=== PATIENT | female | born 1940 | race Caucasian/White ===

== ENCOUNTER 2024-06-06 14:08 | Emergency (ER) | payer MEDICARE, BC, SELFPAY ==
--- NOTE | 2024-06-06 14:28 | XR_ITS ---
EXAMINATION: US venous doppler LE LT HISTORY: calf and thigh pain X3 days COMPARISON: 12/09/2022, left lower extremity DVT ultrasound. FINDINGS: Otto scale, color doppler, and spectral waveforms of the bilateral lower extremity veins. The imaged veins are unremarkable without evidence of internal thrombus. Spectral Doppler imaging demonstrates normal wave forms. In the posterior knee soft tissues, there is an anechoic 3.4 x 1.4 x 2.0 cm lesion with a small tail projecting the knee joint. There is no internal color Doppler. This does not compress. This is similar to previous examination. 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 IMPRESSION: Negative for deep venous thrombosis.
--- NOTE | 2024-06-06 14:28 | EKG_ITS ---
[facility] Test Date: 2024-06-06 Pat Name: SANTOS JACQUES Department: Room: - Gender: Female Rn Community Health: : 1940 Requested By: Kishor Roth Order Number: [id number] Reading MD: Kishor Roth Measurements Intervals [place] Rate: 70 P: 158 RI: 165 QRS: -73 QRSD: 173 T: 82 QT: 447 QTc: 485 Interpretive Statements ELECTRONIC ATRIAL PACEMAKER ELECTRONIC VENTRICULAR PACEMAKER ABNORMAL RHYTHM ECG Compared to ECG 08/30/2023 12:10:34 No significant changes /store/S0/[id number].pdf
--- NOTE | 2024-06-06 14:28 | PD.EDADULT ---
ED General RME/HPI General Chief complaint: Extremity Injury, Lower Stated complaint: LEFT LEG PAIN Time Seen by Provider: 06/06/24 14:27 Arrival date/time: 06/06/24 14:08 CC: Left leg pain HPI ongoing for the past 3 days patient is present with left calf pain left posterior knee pain and left medial thigh pain patient is been taking Tylenol otherwise only other medications are levothyroxine and lisinopril. Tessa is the the PCP Dayanna is the forestry and wildlife manager. Patient denies shortness of breath chest pain shortness difficulty breathing nausea vomiting or diarrhea. Related Data Home Medications ?Medication ?Instructions ?Recorded ?Confirmed lisinopril 20 mg tablet 20 mg PO QDAY #0 tabs 10/05/16 11/10/18 thyroid (pork) 90 mg tablet 90 mg PO QDAY #0 tabs 10/05/16 11/10/18 ([place] Thyroid) metformin 500 mg tablet 500 mg PO BID 11/15/17 11/10/18 loratadine-pseudoephedrine ER 10 1 tab PO QDAY 12/07/17 11/10/18 mg-240 mg tablet,extended nyhevmr75mo (Allergy Relief D-24hr) fkxyfnwaummz-Vf-fmew-minerals 1 tab PO DAILY 12/07/17 11/10/18 (Multiple Vitamin, Womens tablet) antiox.multivit 10-dlzri8w 280 1 cap PO QDAY 11/04/18 11/10/18 mg-lutein 10 mg-zeaxanthin 2 mg capsule (I-Caps) calcium polycarbophil 625 mg 625 mg PO BID 11/04/18 11/10/18 tablet (Fiber-Tabs) coenzyme Q10 200 mg capsule 200 mg PO QDAY 11/04/18 11/10/18 omega 3 350 mg-dha 235 mg-epa 90 2 cap PO QDAY 11/04/18 11/10/18 mg-fish oil 597 mg capsule,delay rel (Sargent-3) Previous Rx's ?Medication ?Instructions ?Recorded docusate sodium 100 mg capsule 100 mg PO BID #60 caps 12/17/17 (Colace) hydrocodone 10 mg-acetaminophen 1 tab PO Q6H PRN Pain #50 tabs 11/09/18 325 mg tablet rivaroxaban 10 mg tablet (Xarelto) 10 mg PO Q24H #28 tabs 11/09/18 Allergies Allergy/AdvReac Type Severity Reaction Status Date / Time codeine Allergy Severe SHORTNESS Verified 11/07/18 12:44 OF BREATH morphine AdvReac Intermediate SHORT OF Verified 11/07/18 12:44 BREATH Past Medical History Past Medical History NEUROLOGIC: Positive Neurological Disorders and Peripheral Neuropathy; Negative Seizures CARDIAC: Positive Cardiac Disorders, Congestive Heart Failure and Hypertension RESPIRATORY: Negative Chronic Obstructive Pulmonary Disease (COPD), Asthma or Bronchitis GASTROINTESTINAL: Positive Gastrointestinal Disorders, Diverticulitis and Obesity GENITOURINARY: Negative Genitourinary Disorders or Renal Disease REPRODUCTIVE: Positive Endometriosis and Previous Pregnancies; Negative Pelvic Inflammatory Disease MUSCULOSKELETAL: Positive Musculoskeletal Disorders, Arthritis and Scoliosis; Negative Osteoporosis, Gout or Fibromyalgia ENT: Positive Cataracts ENDOCRINE: Positive Endocrine Disorders, Diabetes Mellitus Type 2 and Hypothyroidism; Negative Diabetes Mellitus Type 1 HEMATOLOGIC: Negative Blood Disorders or Sickle Cell Disease PSYCHO/SOCIAL: Positive Depression OTHER HISTORY: Positive Hospitalization, Autoimmune Disease, Chicken Pox and Mumps; Negative Falls, Blood Transfusions, Blood Transfusion Reaction or Anesthesia Reactions Family History FAMILY HISTORY: Positive Family Respiratory Disorders, Family Cardiac Disorders, Family Cancer and Family Surgery; Negative Family Psychiatric Problems, Family Gastrointestinal Problems or Family Anesthesia Reaction Surgical History SURGICAL: Positive Cardiac Surgery, Pacemaker, Angiogram, Endocrine Surgery, Thyroidectomy, Tonsillectomy and Hysterectomy; Negative Open Heart Surgery, Coronary Artery Bypass Graft, Valve Replacement, Coronary Stent or Cardiac Catheterization Social History SMOKING STATUS: Never smoker SECOND HAND EXPOSURE: No ED Exam Narrative Physical exam: [General: Morbid obese not in any acute distress Head normocephalic HEENT: Within acceptable limits Neck is supple nontender Chest equal chest rise nontender to palpation Respiratory: Clear to auscultation no wheezes crackles or rubs CV: Rate rhythm is regular no murmurs rubs or clicks Abdomen is distended secondary to body habitus soft nontender no masses positive bowel sounds all 4 quadrants Back: No CVA tenderness no spinous process tenderness from cervical spine thoracic and lumbar spine Skin: Intact no petechiae rash induration ulceration or crepitus Extremities: Moving all extremity against resistance cap refill less than 2 seconds neurosensory intact Neuro: Awake alert oriented x3 Glascow coma 15 no focal deficits] Course Quality Measures none Orders Category Date Time Status EKG (ED ONLY) *Do not use* NOW Care 06/06/24 14:28 Completed EKG (ED Only) Stat Exams 06/06/24 14:28 Draft US venous doppler LE LT Stat Exams 06/06/24 14:28 Completed B-Type Natriuretic Peptide Stat Lab 06/06/24 15:00 Completed CBC Stat Lab 06/06/24 15:00 Completed Comprehensive Metabolic Panel Stat Lab 06/06/24 15:00 Completed Drug Screen,Urine Stat Lab 06/06/24 14:28 Ordered LDH (Lactate Dehydrogenase) Stat Lab 06/06/24 15:00 Completed Magnesium Stat Lab 06/06/24 15:00 Completed Partial Thromboplastin Time Stat Lab 06/06/24 15:00 Completed Prothrombin Time with INR Stat Lab 06/06/24 15:00 Completed Troponin I Stat Lab 06/06/24 15:00 Completed Urinalysis Stat Lab 06/06/24 14:28 Ordered Vital Signs Vital signs: Vital Signs Temperature 98.1 F 06/06/24 14:51 Pulse Rate 69 06/06/24 14:51 Respiratory Rate 18 06/06/24 14:51 Blood Pressure 164/94 H 06/06/24 14:51 Pulse Oximetry (%) 98 06/06/24 14:51 Oxygen Delivery Method Room Air 06/06/24 14:51 [facility] Patient data External records reviewed:: [facility] previous records and EMS form Clinical information provided by:: patient and EMS Social determinants that could affect healthcare access:: none Patient has the following chronic illnesses:: Hypertension hypothyroidism How is presenting disease/condition affected by chronic disease/condition?: uneffected by Evaluation data The following diagnostics were reviewed and interpreted by me:: lab results, radiology exam(s) and EKG tracing(s) Lab and/or radiology exams considered but not ordered:: CBC shows no acute leukocytosis anemia thrombocytopenia CMP shows no acute electrolyte imbalances renal impairment transaminitis or T. bili elevation Coags within acceptable limits Troponin is negative BNP is negative Ultrasound is negative for DVT Interpretation Summary: Left lower leg pain is not derived from a DVT. This time not knowing where that pain is coming from have the patient is able to ambulate patient will be discharged home with left lower leg pain Medications Medications considered but not ordered:: None Medication administrations:: None Consultations Consultation(s) initiated? (list below): No Diagnosis Differential Diagnosis ED Complaint MDM: DVT superficial thrombophlebitis, leg strain Most likely diagnosis given after review of the tests above:: Leg left leg pain Admission Indicated Admission indicated?: not indicated Explain why admission is indicated or not indicated:: Stable for outpatient follow-up Admission Request Was there a request for admission?: No Disposition Plan Disposition Plan: Discharge Discharge Attestation Discharge Attestation: The patient and all family members were given an opportunity to ask questions and understood the discharge instructions. Discharge instructions specifically effects, indications for sooner follow up or return to the emergency department, and the expected course of current diagnosis. Patient condition: Stable Medical Decision Making Differential Diagnosis Differential Diagnosis: DVT superficial thrombophlebitis, leg strain Lab Data 06/06/24 15:00 06/06/24 15:00 Labs: Lab Results 06/06/24 Range/Units 15:00 WBC 6.9 (3.6-11.0) Thou/mm3 RBC 4.52 (4.00-5.20) Miln/mm3 Hgb 13.4 (12.0-16.0) g/dL Hct 39.4 (36.0-46.0) % MCV 87 (80-100) fL MCH 29.6 (25.0-35.0) pg MCHC 34.0 (31.0-37.0) g/dl RDW Std Deviation 43.7 (36.4-46.3) fL Plt Count 215 (140-440) Thou/mm3 Neut % (Auto) 61 (37-80) % Lymph % (Auto) 31 (10-50) % Calvert % (Auto) 7 (0-12) % Eos % (Auto) 1 (0-10) % Baso % (Auto) 0 (0-2.5) % Neut # (Auto) 4.2 (1.8-7.7) Thou/mm3 Lymph # (Auto) 2.1 (1.0-4.8) Thou/mm3 Calvert # (Auto) 0.5 (0.0-0.8) Thou/mm3 Eos # (Auto) 0.0 (0.0-0.5) Thou/mm3 Baso # (Auto) 0.0 (0.0-0.2) Thou/mm3 Immature Gran # (Auto) 0.02 H (0.00-0.00) Thou/mm3 Absolute Nucleated RBC 0.00 (0.00-0.00) Thou/mm3 Immature Gran % 0 (0-0) % Nucleated RBC % 0 (0) /100 WBC PT 11.1 (9.0-12.2) Seconds INR 1.0 (0.9-1.3) APTT 51.8 H (22.0-36.0) Seconds Sodium 140 (136-145) mMol/L Potassium 4.0 (3.4-5.1) mMol/L Chloride 107 (98-107) mMol/L Carbon Dioxide 26.2 (20.0-31.0) mMol/L Anion Gap 7 (7-16) BUN 9 (9-23) mg/dL Creatinine 0.9 (0.6-1.3) mg/dL Estim Creat Clear Calc 51.5 L (>60) mL/min eGFR > 60 (60 - ) See Note BUN/Creatinine Ratio 10 L (12-20) Ratio Glucose 115 H (74-106) mg/dL Calculated Osmolality 279 (275-295) Calcium 9.6 (8.3-10.6) mg/dL Corrected Calcium 9.6 (8.5-10.1) mg/dL Magnesium 1.8 (1.6-2.6) mg/dL Total Bilirubin 0.3 (0.3-1.2) mg/dL AST 20 (0-34) U/L ALT 11 (10-49) U/L Alkaline Phosphatase 64 (46-116) U/L Lactate Dehydrogenase 157 (120-246) U/L Troponin I < 0.002 (0.0-0.045) ng/mL B-Natriuretic Peptide 79 (0-100) pg/mL Total Protein 6.9 (5.7-8.2) gm/dL Albumin 4.2 (3.4-4.8) gm/dL Globulin 2.7 (2.3-3.5) gm/dL Albumin/Globulin Ratio 1.6 (1.2-2.2) Discharge Plan Plan Patient Disposition: HOME (Self Care) Patient condition on transfer: Stable Prescriptions/Referrals Prescriptions/Med Rec: No Action metformin 500 mg tablet 500 mg PO BID lisinopril 20 MG tablet 20 mg PO QDAY Qty: 0 thyroid (pork) [[place] Thyroid] 90 MG tablet 90 mg PO QDAY Qty: 0 loratadine-pseudoephedrine [Allergy Relief D-24hr] 10-240 mg Tablet Extended Release 24 Hr 1 tab PO QDAY Multiple Vitamin, Womens Tablet 1 tab PO DAILY docusate sodium [Colace] 100 mg capsule 100 mg PO BID Qty: 60 0RF calcium polycarbophil [Fiber-Tabs] 625 mg Tablet 625 mg PO BID coenzyme Q10 200 mg Capsule 200 mg PO QDAY I-Caps 280-10-2 mg Capsule 1 cap PO QDAY Sargent-3 350 mg-235 mg- 90 mg-597 mg Capsule,Delayed Release(Dr/Ec) 2 cap PO QDAY hydrocodone-acetaminophen 10-325 mg Tablet 1 tab PO Q6H MDD 6 PRN (Reason: Pain) Qty: 50 0RF Xarelto 10 mg Tablet 10 mg PO Q24H Qty: 28 0RF Referrals: Samantha Zarate MD [Primary Care Provider] - In 1 week Problem List Clinical Impression: Left leg pain Patient/Caregiver Discharge Instructions Education Materials: ED Myalgias Additional Instructions: Follow-up with your primary care provider there is no DVT. If is worsening of symptoms return the emergency room medially for further evaluation. Print Language: Portuguese Stand Alone Forms: Andreea Award Info., Patient Portal Info Letter PA/OCCUPATIONAL HEALTH AND SAFETY ADVISER Supervising Physician PA/OCCUPATIONAL HEALTH AND SAFETY ADVISER Supervising Physician: Kishor Haynes ENP
[2024-06-06 14:38] VITALS: PULSE 90; RESP 20; O2SAT 97; BMI 39.1
[2024-06-06 14:51] VITALS: BP 164/94; PULSE 69; RESP 18; TEMP 36.7; O2SAT 98
[2024-06-06 15:14] LABS: Basophils % (Auto) 0 % (0-2.5); Eosinophils % (Auto) 1 % (0-10); Hematocrit 39.4 % (36.0-46.0); Hemoglobin 13.4 g/dL (12.0-16.0); Immature Granulocytes % (Auto) 0 % (0-0); Immature Granulocytes Auto 0.02 Thou/mm3 (0.00-0.00); Lymphocytes # (Auto) 2.1 Thou/mm3 (1.0-4.8); Lymphocytes % (Auto) 31 % (10-50); Mean Corpuscular Hemoglobin 29.6 pg (25.0-35.0); Mean Corpuscular Volume 87 fL (80-100); Monocytes # (Auto) 0.5 Thou/mm3 (0.0-0.8); Monocytes % (Auto) 7 % (0-12); Neutrophils # (Auto) 4.2 Thou/mm3 (1.8-7.7); Neutrophils % (Auto) 61 % (37-80); Nucleated Red Blood Cell % 0 /100 WBC (0); Platelet Count 215 Thou/mm3 (140-440); RDW Standard Deviation 43.7 fL (36.4-46.3); Red Blood Count 4.52 Miln/mm3 (4.00-5.20); White Blood Count 6.9 Thou/mm3 (3.6-11.0)
[2024-06-06 15:38] LABS: B-Type Natriuretic Peptide 79 pg/mL (0-100)
[2024-06-06 15:39] LABS: Alanine Aminotransferase 11 U/L (10-49); Albumin, Serum 4.2 gm/dL (3.4-4.8); Albumin/Globulin Ratio 1.6 (1.2-2.2); Alkaline Phosphatase 64 U/L (46-116); Anion Gap 7 (7-16); Aspartate Amino Transferase 20 U/L (0-34); BUN/Creatinine Ratio 10 Ratio (12-20); Bilirubin,Total 0.3 mg/dL (0.3-1.2); Blood Urea Nitrogen 9 mg/dL (9-23); Calcium 9.6 mg/dL (8.3-10.6); Calcium (Corrected) 9.6 mg/dL (8.5-10.1); Carbon Dioxide 26.2 mMol/L (20.0-31.0); Chloride 107 mMol/L (98-107); Creatinine (Component) 0.9 mg/dL (0.6-1.3); Estimated Creatinine Clearance 51.5 mL/min (>60); Globulin 2.7 gm/dL (2.3-3.5); Glucose 115 mg/dL (74-106); LDH (Lactate Dehydrogenase) 157 U/L (120-246); Magnesium 1.8 mg/dL (1.6-2.6); Osmolality,Calculated 279 (275-295); Sodium 140 mMol/L (136-145); Total Protein 6.9 gm/dL (5.7-8.2); Troponin I < 0.002 ng/mL (0.0-0.045); eGFR > 60 See Note
[2024-06-06 15:53] LABS: Partial Thromboplastin Time 51.8 Seconds (22.0-36.0); Prothrombin Time 11.1 Seconds (9.0-12.2)
[2024-06-06 16:47] VITALS: BP 98/79; PULSE 72; RESP 20; TEMP 36.3; O2SAT 100
[2024-06-06 17:57] VITALS: BP 176/90; PULSE 97; RESP 20; TEMP 36.6; O2SAT 95
== END 2024-06-06 17:58 | disposition home or self-care (01) ==
PROVIDERS: Registered Nurse General Practice; Emergency Provider Emergency Medicine; PCP Family Medicine
DX: M25.562 Pain in left knee (principal); M79.652 Pain in left thigh; M79.662 Pain in left lower leg
CPT/HCPCS: 36415; 80053; 80307; 81001; 83615; 83735; 83880; 84484; 85025; 85610; 85730; 93005; 93971; 99284

== ENCOUNTER → 2024-06-19 | Outpatient (CLI) | payer MEDICARE, BC, SELFPAY ==
[2024-06-19 13:50] LABS: Basophils % (Auto) 0 % (0-2.5); Eosinophils # (Auto) 0.1 Thou/mm3 (0.0-0.5); Eosinophils % (Auto) 1 % (0-10); Hematocrit 39.7 % (36.0-46.0); Immature Granulocytes % (Auto) 0 % (0-0); Immature Granulocytes Auto 0.03 Thou/mm3 (0.00-0.00); Lymphocytes # (Auto) 2.4 Thou/mm3 (1.0-4.8); Lymphocytes % (Auto) 29 % (10-50); Mean Corpuscular HGB Conc 32.7 g/dl (31.0-37.0); Mean Corpuscular Hemoglobin 29.4 pg (25.0-35.0); Mean Corpuscular Volume 90 fL (80-100); Monocytes # (Auto) 0.5 Thou/mm3 (0.0-0.8); Monocytes % (Auto) 7 % (0-12); Neutrophils # (Auto) 5.1 Thou/mm3 (1.8-7.7); Neutrophils % (Auto) 63 % (37-80); Nucleated Red Blood Cell % 0 /100 WBC (0); Platelet Count 245 Thou/mm3 (140-440); RDW Standard Deviation 45.1 fL (36.4-46.3); Red Blood Count 4.42 Miln/mm3 (4.00-5.20); White Blood Count 8.2 Thou/mm3 (3.6-11.0)
[2024-06-19 14:06] LABS: Anion Gap 8 (7-16); BUN/Creatinine Ratio 16 Ratio (12-20); Blood Urea Nitrogen 14 mg/dL (9-23); Calcium 10.4 mg/dL (8.3-10.6); Carbon Dioxide 30.2 mMol/L (20.0-31.0); Chloride 103 mMol/L (98-107); Creatinine (Component) 0.9 mg/dL (0.6-1.3); Glucose 110 mg/dL (74-106); Osmolality,Calculated 282 (275-295); Potassium 4.5 mMol/L (3.4-5.1); Sodium 141 mMol/L (136-145); eGFR > 60 See Note
[2024-06-19 14:08] LABS: Partial Thromboplastin Time 51.6 Seconds (22.0-36.0); Prothrombin Time 10.9 Seconds (9.0-12.2)
== END | disposition home or self-care (01) ==
LOC: COPL 11:39
PROVIDERS: PCP Registered Nurse; Referring Provider Internal Medicine; Visit Provider Internal Medicine
DX: I25.10 Atherosclerotic heart disease of native coronary artery without angina pectoris (principal); I48.91 Unspecified atrial fibrillation
CPT/HCPCS: 36415; 80048; 85025; 85610; 85730

== ENCOUNTER 2024-08-18 12:50 | Emergency (ER) | payer MEDICARE, BC, SELFPAY ==
[2024-08-18 12:52] VITALS: BP 163/89; PULSE 71; RESP 20; TEMP 36.7; O2SAT 98
[2024-08-18 12:59] VITALS: PULSE 90; O2SAT 97
[2024-08-18 13:03] VITALS: BMI 37.3
--- NOTE | 2024-08-18 13:27 | EKG_ITS ---
[facility] Test Date: 2024-08-18 Pat Name: SANTOS JACQUES Department: Room: - Gender: Female Creative Manager: : 1940 Requested By: Jhon Reza Order Number: [id number] Reading MD: Jhon Reza Measurements Intervals [place] Rate: 70 P: 146 VA: 171 QRS: -66 QRSD: 168 T: 70 QT: 435 QTc: 469 Interpretive Statements ELECTRONIC ATRIAL PACEMAKER ELECTRONIC VENTRICULAR PACEMAKER ABNORMAL RHYTHM ECG Compared to ECG 06/06/2024 15:44:57 No significant changes /store/S0/[id number]/[id number].pdf
--- NOTE | 2024-08-18 13:27 | XR_ITS ---
Examination: AP chest single view Technique one AP portable upright chest single view Date and time: August 18, 2024 1339 hours Comparison 12/26/2017 INDICATIONS: Shortness of breath today. FINDINGS: Normal heart size No pneumonia or pulmonary edema Cardiac leads satisfactory position IMPRESSION: No active disease
[2024-08-18 13:58] VITALS: PULSE 75
[2024-08-18 14:07] LABS: Basophils % (Auto) 1 % (0-2.5); Eosinophils % (Auto) 1 % (0-10); Hematocrit 38.5 % (36.0-46.0); Immature Granulocytes % (Auto) 0 % (0-0); Immature Granulocytes Auto 0.02 Thou/mm3 (0.00-0.00); Lymphocytes # (Auto) 1.9 Thou/mm3 (1.0-4.8); Lymphocytes % (Auto) 29 % (10-50); Mean Corpuscular HGB Conc 33.8 g/dl (31.0-37.0); Mean Corpuscular Volume 89 fL (80-100); Monocytes # (Auto) 0.4 Thou/mm3 (0.0-0.8); Monocytes % (Auto) 7 % (0-12); Neutrophils % (Auto) 62 % (37-80); Nucleated Red Blood Cell % 0 /100 WBC (0); Platelet Count 213 Thou/mm3 (140-440); Red Blood Count 4.33 Miln/mm3 (4.00-5.20); White Blood Count 6.3 Thou/mm3 (3.6-11.0)
[2024-08-18 14:17] LABS: B-Type Natriuretic Peptide 84 pg/mL (0-100)
[2024-08-18 14:18] LABS: Alanine Aminotransferase 12 U/L (10-49); Albumin, Serum 4.1 gm/dL (3.4-4.8); Albumin/Globulin Ratio 1.6 (1.2-2.2); Alkaline Phosphatase 63 U/L (46-116); Anion Gap 9 (7-16); Aspartate Amino Transferase 21 U/L (0-34); BUN/Creatinine Ratio 12 Ratio (12-20); Bilirubin,Total 0.4 mg/dL (0.3-1.2); Blood Urea Nitrogen 11 mg/dL (9-23); Calcium 8.9 mg/dL (8.3-10.6); Calcium (Corrected) 8.9 mg/dL (8.5-10.1); Carbon Dioxide 27.4 mMol/L (20.0-31.0); Chloride 106 mMol/L (98-107); Creatinine (Component) 0.9 mg/dL (0.6-1.3); Estimated Creatinine Clearance 50.1 mL/min (>60); Globulin 2.5 gm/dL (2.3-3.5); Glucose 114 mg/dL (74-106); Osmolality,Calculated 283 (275-295); Potassium 4.2 mMol/L (3.4-5.1); Sodium 142 mMol/L (136-145); Total Protein 6.6 gm/dL (5.7-8.2); Troponin I < 0.020 ng/mL (0.0-0.045); eGFR > 60 See Note
--- NOTE | 2024-08-18 14:24 | PD.EDSOB ---
ED SOB =RME/HPI General Chief Complaint: Shortness of Breath/Dyspnea Stated Complaint: SOB Time Seen by Provider: 08/18/24 13:00 Arrival date/time: 08/18/24 12:50 Limitations: no limitations RME / HPI RME / HPI Narrative: 84 year old female with history of hypertension, hypothyroidism presents to the ED BIBA from home for evaluation of shortness of breath today. While in the ED, patient described feeling her body is heavy and unable to get a deep breath in. Patient mentioned she often feels short of breath that resolves on its own. Denies fevers, chills, sweats, chest pain, cough, abdominal pain, n/v/d, or urinary symptoms. No other associated symptoms or complaints reported. Related Data Home Medications ?Medication ?Instructions ?Recorded ?Confirmed lisinopril 20 mg tablet 20 mg PO QDAY #0 tabs 10/05/16 11/10/18 thyroid (pork) 90 mg tablet 90 mg PO QDAY #0 tabs 10/05/16 11/10/18 ([place] Thyroid) metformin 500 mg tablet 500 mg PO BID 11/15/17 11/10/18 loratadine-pseudoephedrine ER 10 1 tab PO QDAY 12/07/17 11/10/18 mg-240 mg tablet,extended nijwchl45mm (Allergy Relief D-24hr) enjvjumezvxc-Fx-pusp-minerals 1 tab PO DAILY 12/07/17 11/10/18 (Multiple Vitamin, Womens tablet) antiox.multivit 10-agwwu3n 280 1 cap PO QDAY 11/04/18 11/10/18 mg-lutein 10 mg-zeaxanthin 2 mg capsule (I-Caps) calcium polycarbophil 625 mg 625 mg PO BID 11/04/18 11/10/18 tablet (Fiber-Tabs) coenzyme Q10 200 mg capsule 200 mg PO QDAY 11/04/18 11/10/18 omega 3 350 mg-dha 235 mg-epa 90 2 cap PO QDAY 11/04/18 11/10/18 mg-fish oil 597 mg capsule,delay rel (Ellinger-3) Previous Rx's ?Medication ?Instructions ?Recorded docusate sodium 100 mg capsule 100 mg PO BID #60 caps 12/17/17 (Colace) hydrocodone 10 mg-acetaminophen 1 tab PO Q6H PRN Pain #50 tabs 11/09/18 325 mg tablet rivaroxaban 10 mg tablet (Xarelto) 10 mg PO Q24H #28 tabs 11/09/18 Allergies Allergy/AdvReac Type Severity Reaction Status Date / Time codeine Allergy Severe SHORTNESS Verified 11/07/18 12:44 OF BREATH morphine AdvReac Intermediate SHORT OF Verified 11/07/18 12:44 BREATH Review of Systems Review of Systems Narrative Review of Systems: GEN: No fever, no chills, no weight loss EYES: No discharge, no visual changes, no pain HEENT: No ear pain, no congestion, no sore throat PULM: +shortness of breath, no cough, no congestion CV: No chest pain, no dyspnea on exertion, no palpitations GI: No nausea, no vomiting, no diarrhea, no pain, no constipation : No frequency, no urgency and no dysuria MUSC/SKEL No joint pain, no back pain SKIN: No rash PSYCH: No hallucinations, no depression HEME/LYMPH: No easy bleeding or bruising tendencies NEURO: No weakness, no headache Past Medical History Past Medical History NEUROLOGIC: Positive Neurological Disorders and Peripheral Neuropathy CARDIAC: Positive Cardiac Disorders, Heart Murmur, Congestive Heart Failure and Hypertension GASTROINTESTINAL: Positive Gastrointestinal Disorders, Diverticulitis and Obesity REPRODUCTIVE: Positive Endometriosis and Previous Pregnancies MUSCULOSKELETAL: Positive Musculoskeletal Disorders, Arthritis and Scoliosis ENT: Positive Cataracts ENDOCRINE: Positive Endocrine Disorders and Hypothyroidism PSYCHO/SOCIAL: Positive Depression OTHER HISTORY: Positive Hospitalization, Chicken Pox and Mumps Family History FAMILY HISTORY: Positive Family Respiratory Disorders, Family Cardiac Disorders, Family Cancer and Family Surgery Surgical History SURGICAL: Positive Cardiac Surgery, Pacemaker, Angiogram, Endocrine Surgery, Thyroidectomy, Tonsillectomy and Hysterectomy Social History SMOKING STATUS: Never smoker SECOND HAND EXPOSURE: No ED Exam General Limitations: Present no limitations General appearance: Present alert and other (Tearful ) Head Head exam: Present atraumatic Eye Eye exam: Present normal appearance, PERRL and EOMI ENT ENT exam: Present normal exam, normal oropharynx and mucous membranes moist Neck Neck exam: Present normal inspection, full ROM and trachea midline Chest Chest inspection: Present normal inspection and symmetric chest wall rise Respiratory Respiratory exam: Present normal lung sounds bilaterally Cardiovascular Cardiovascular exam: Present regular rate, normal rhythm and normal heart sounds Abdominal Exam Abdominal exam: Present soft and normal bowel sounds Extremities Exam Extremities exam: Present normal inspection and full ROM Back Exam Back exam: Present normal inspection and full ROM Neurological Exam Neurological exam: Present alert, oriented X3 and CN II-XII intact Psychiatric Psychiatric exam: Present normal affect and normal mood Skin Skin exam: Present warm, dry, intact and normal color Course Quality Measures none Orders Category Date Time Status Settlement Clerk NOW Care 08/18/24 13:28 Active Continuous Pulse Oximetry NOW Care 08/18/24 13:27 Completed EKG (ED ONLY) *Do not use* NOW Care 08/18/24 13:28 Completed Insert IV NOW Care 08/18/24 13:28 Active EKG (ED Only) Stat Exams 08/18/24 13:27 Draft XR chest 1V portable Stat Exams 08/18/24 13:27 Completed B-Type Natriuretic Peptide Stat Lab 08/18/24 13:48 Completed CBC Stat Lab 08/18/24 13:48 Completed Comprehensive Metabolic Panel Stat Lab 08/18/24 13:48 Completed Partial Thromboplastin Time Stat Lab 08/18/24 13:48 Completed Troponin I Stat Lab 08/18/24 13:48 Completed Urinalysis Stat Lab 08/18/24 14:06 Completed Vital Signs Vital signs: Vital Signs Temperature 98.1 F 08/18/24 12:52 Pulse Rate 71 08/18/24 12:52 Respiratory Rate 20 08/18/24 12:52 Blood Pressure 163/89 H 08/18/24 12:52 Pulse Oximetry (%) 98 08/18/24 12:52 Oxygen Delivery Method Room Air 08/18/24 12:52 Pulse ox is 98% on room air which is adequate. Shortness of Breath / Dyspnea MDM Narrative MDM Narrative:: Jane Dueñas am scribing for and in the presence of Dr. Jones. Patient remains clinically stable throughout the emergency department visit not in respiratory distress. We reviewed all the results, analysis, and treatment plans. Patient is amenable to discharge. Strict return precautions were outlined. Patient was discharged in stable condition. Patient data External records reviewed:: [facility] previous records (I reviewed ED Visit on 06/06/2024 ) and EMS form Clinical information provided by:: patient and EMS Social determinants that could affect healthcare access:: none Patient has the following chronic illnesses:: HTN, hypothyroidism How is presenting disease/condition affected by chronic disease/condition?: uneffected by Evaluation data The following diagnostics were reviewed and interpreted by me:: lab results, radiology exam(s) and EKG tracing(s) (EKG @ 14:02. Paced rhythm, rate 70, DC 171ms, QRS 168ms, QT/QTc 435/469ms. ) Lab and/or radiology exams considered but not ordered:: None Interpretation Summary: Ordering Physician: Jhon Jones MD Date of Service: 08/18/24 Procedure(s): XR chest 1V portable Accession Number(s): [id number] cc: Jhon Jones MD; Javad Pak MD~ Examination: AP chest single view Technique one AP portable upright chest single view Date and time: August 18, 2024 1339 hours Comparison 12/26/2017 INDICATIONS: Shortness of breath today. FINDINGS: Normal heart size No pneumonia or pulmonary edema Cardiac leads satisfactory position IMPRESSION: No active disease Dictated By: Javad Pak MD Signed By: <Electronically signed by Javad Pak MD in OV> 08/18/24 1349 Medications / Prescriptions Medications or Prescriptions considered but not ordered:: None Medication administrations:: See above Consultations Consultation(s) initiated? (list below): No Diagnosis Shortness of Breath Differential Diagnosis: acute exacerbation of chronic obstructive airways disease, congestive heart failure, community acquired pneumonia and asthma with exacerbation Most likely diagnosis given after review of the tests above:: Acute dyspnea Anxiety Admission Indicated Admission indicated?: not indicated Admission Request Was there a request for admission?: No Disposition Plan Disposition Plan: Discharge Discharge Attestation Discharge Attestation: The patient and all family members were given an opportunity to ask questions and understood the discharge instructions. Discharge instructions specifically effects, indications for sooner follow up or return to the emergency department, and the expected course of current diagnosis. Patient condition: Stable Discharge Plan Plan Patient Disposition: HOME (Self Care) Prescriptions/Referrals Prescriptions/Med Rec: No Action metformin 500 mg tablet 500 mg PO BID lisinopril 20 MG tablet 20 mg PO QDAY Qty: 0 thyroid (pork) [[place] Thyroid] 90 MG tablet 90 mg PO QDAY Qty: 0 loratadine-pseudoephedrine [Allergy Relief D-24hr] 10-240 mg Tablet Extended Release 24 Hr 1 tab PO QDAY Multiple Vitamin, Womens Tablet 1 tab PO DAILY docusate sodium [Colace] 100 mg capsule 100 mg PO BID Qty: 60 0RF calcium polycarbophil [Fiber-Tabs] 625 mg Tablet 625 mg PO BID coenzyme Q10 200 mg Capsule 200 mg PO QDAY I-Caps 280-10-2 mg Capsule 1 cap PO QDAY Ellinger-3 350 mg-235 mg- 90 mg-597 mg Capsule,Delayed Release(Dr/Ec) 2 cap PO QDAY hydrocodone-acetaminophen 10-325 mg Tablet 1 tab PO Q6H MDD 6 PRN (Reason: Pain) Qty: 50 0RF Xarelto 10 mg Tablet 10 mg PO Q24H Qty: 28 0RF Referrals: Francois Zarate MD [Primary Care Provider] - In 1 week Problem List Clinical Impression: Acute dyspnea, Anxiety Patient/Caregiver Discharge Instructions Education Materials: ED Anxiety Reaction, ED Shortness of Breath (Dyspnea) Additional Instructions: Follow-up with your primary care doctor in 3 to 5 days for recheck. You can return to the emergency department sooner if symptoms worsen or if you notice any new, concerning issues. Print Language: Yoruba Stand Alone Forms: Andreea Award Info., Patient Portal Info Letter
[2024-08-18 14:28] LABS: Partial Thromboplastin Time 51.3 Seconds (22.0-36.0)
[2024-08-18 14:42] LABS: Collection Type, Urine Clean Catch; Squamous Epithelial Cell,Urine 0 /hpf (0-5); WBC,Urine 0 /hpf (0-5)
[2024-08-18 14:56] LABS: Bilirubin,Urine Negative (Negative); Blood,Urine Negative (Negative); Clarity,Urine Clear (Clear/Hazy); Color,Urine Colorless (Lt Yel-Yel); Glucose, Urine Negative (Negative); Ketones,Urine Negative (Negative); Leukocyte Esterase,Urine Negative (Negative); Nitrite,Urine Negative (Negative); PH,Urine 7.5 (5.0-7.0); Protein,Urine Negative (Neg - Trace); RBC,Urine < 1 /hpf (0-3); Specific Gravity,Urine 1.006 (1.001-1.035); Urobilinogen,Urine Negative mg/dL (0.0-1.0)
[2024-08-18 16:16] VITALS: BP 169/94; PULSE 75; RESP 24; TEMP 36.8; O2SAT 97
== END 2024-08-18 16:29 | disposition home or self-care (01) ==
PROVIDERS: Emergency Provider Family Medicine; PCP Family Medicine
DX: F41.9 Anxiety disorder, unspecified (principal); R06.00 Dyspnea, unspecified; R94.31 Abnormal electrocardiogram [ECG] [EKG]; I11.0 Hypertensive heart disease with heart failure; I50.9 Heart failure, unspecified; Z95.0 Presence of cardiac pacemaker
CPT/HCPCS: 36415; 71045; 80053; 81001; 83880; 84484; 85025; 85730; 93005; 99283

== ENCOUNTER → 2024-09-26 | Outpatient (CLI) | payer MEDICARE, BC, SELFPAY ==
--- NOTE | 2024-09-26 16:00 | XR_ITS ---
Examination: CT brain head without contrast. 2-D sagittal coronal reconstructions Date and time of exam:September 26, 2024, 1640 hours Comparison February 05, 2012 INDICATIONS: Headaches 6 months CTDI: vol (mGy):48 DLP: (mGycm):919 Technique: Multiple CT axial sections of the brain have been obtained, 5 mm slice thickness. Contrast has not been administered. 2-D sagittal, coronal reconstructions have been obtained Low dose protocols were performed. One or more of the following dose reduction techniques were used; automated exposure control, adjustment of the mA and/or KV according to patient size, use of iterative reconstruction technique. Findings: No significant ventricular enlargement. Intra-axial or extra-axial hemorrhage density is not seen. No mass effect or midline shift Basal cisterns are not remarkable. Fourth ventricle is midline. Cranial vault intact. 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
== END | disposition home or self-care (01) ==
LOC: CCTX 15:44
PROVIDERS: Referring Provider Registered Nurse; Visit Provider Registered Nurse
DX: H70.13 Chronic mastoiditis, bilateral (principal); J32.8 Other chronic sinusitis
CPT/HCPCS: 70450

== ENCOUNTER 2024-09-29 12:57 | Emergency (ER) | payer MEDICARE, BC, SELFPAY ==
[2024-09-29 12:59] VITALS: BP 133/76; PULSE 69; RESP 18; TEMP 37; O2SAT 98
--- NOTE | 2024-09-29 13:03 | XR_ITS ---
Examination: AP chest single view Technique one AP portable upright chest single view Date and time: September 29, 2024, 1342 hrs. Comparison August 18, 2024 Indications: Weakness today Findings: Mild enlargement cardiac contour. Cardiac leads satisfactory position. No lobar pneumonia or pulmonary edema Impression: No lobar pneumonia or pulmonary edema.
--- NOTE | 2024-09-29 13:03 | PD.EDWEAK ---
ED Weakness RME/HPI General Chief complaint: Weakness Stated complaint: WEAKNESS Time Seen by Provider: 09/29/24 13:02 Arrival date/time: 09/29/24 12:57 Limitations: no limitations RME / HPI RME / HPI Narrative: 84-year-old female is here today with her daughter. She has had intermittent generalized weakness that has been ongoing for several months. She states she had a 3-day admission at [facility] in [place], [place], where they attempted to identify the cause. She states she had numerous workups including catheterization of the heart which was unremarkable. She denies any falls or injuries. Has no unilateral weakness. No aphasia or unilateral paresthesias. She has had no vision changes. No nausea or vomiting. No diarrhea. Has no congestion or cough. No diarrhea. No skin changes. Related Data Home Medications ?Medication ?Instructions ?Recorded ?Confirmed lisinopril 20 mg tablet 20 mg PO QDAY #0 tabs 10/05/16 11/10/18 thyroid (pork) 90 mg tablet 90 mg PO QDAY #0 tabs 10/05/16 11/10/18 ([place] Thyroid) metformin 500 mg tablet 500 mg PO BID 11/15/17 11/10/18 loratadine-pseudoephedrine ER 10 1 tab PO QDAY 12/07/17 11/10/18 mg-240 mg tablet,extended [id number] (Allergy Relief D-24hr) spldcswaxsig-Ey-rlxg-minerals 1 tab PO DAILY 12/07/17 11/10/18 (Multiple Vitamin, Womens tablet) antiox.multivit 10-dssmq7y 280 1 cap PO QDAY 11/04/18 11/10/18 mg-lutein 10 mg-zeaxanthin 2 mg capsule (I-Caps) calcium polycarbophil 625 mg 625 mg PO BID 11/04/18 11/10/18 tablet (Fiber-Tabs) coenzyme Q10 200 mg capsule 200 mg PO QDAY 11/04/18 11/10/18 omega 3 350 mg-dha 235 mg-epa 90 2 cap PO QDAY 11/04/18 11/10/18 mg-fish oil 597 mg capsule,delay rel ([place]-3) Previous Rx's ?Medication ?Instructions ?Recorded docusate sodium 100 mg capsule 100 mg PO BID #60 caps 12/17/17 (Colace) hydrocodone 10 mg-acetaminophen 1 tab PO Q6H PRN Pain #50 tabs 11/09/18 325 mg tablet rivaroxaban 10 mg tablet (Xarelto) 10 mg PO Q24H #28 tabs 11/09/18 Allergies Allergy/AdvReac Type Severity Reaction Status Date / Time codeine Allergy Severe SHORTNESS Verified 09/29/24 13:12 OF BREATH morphine AdvReac Intermediate SHORT OF Verified 09/29/24 13:12 BREATH Review of Systems Review of Systems Systems Reviewed: All systems reviewed, normal except as documented ED Exam General Limitations: Present no limitations General appearance: Present alert and in no apparent distress Head Head exam: Present atraumatic Eye Eye exam: Present normal appearance, PERRL and EOMI ENT ENT exam: Present normal exam, normal oropharynx and mucous membranes moist Neck Neck exam: Present normal inspection, full ROM and trachea midline Chest Chest inspection: Present normal inspection and symmetric chest wall rise Respiratory Respiratory exam: Present normal lung sounds bilaterally Cardiovascular Cardiovascular exam: Present regular rate, normal rhythm and normal heart sounds Abdominal Exam Abdominal exam: Present soft and normal bowel sounds Extremities Exam Extremities exam: Present normal inspection and full ROM Back Exam Back exam: Present normal inspection and full ROM Neurological Exam Neurological exam: Present alert and oriented X3 Psychiatric Psychiatric exam: Present normal affect and normal mood Skin Skin exam: Present warm, dry, intact and normal color Course Quality Measures none Orders Category Date Time Status EKG (ED ONLY) *Do not use* NOW Care 09/29/24 13:03 Completed EKG (ED Only) Stat Exams 09/29/24 13:03 Ordered XR chest 1V Stat Exams 09/29/24 13:03 Completed CBC Stat Lab 09/29/24 13:52 Completed CMP [Comprehensive Metabolic Panel] Stat Lab 09/29/24 13:52 Completed TSH [Thyroid Stimulating Hormone] Stat Lab 09/29/24 13:52 Completed UA [Urinalysis] Stat Lab 09/29/24 13:45 Completed Vital Signs Vital signs: Vital Signs Temperature 98.6 F 09/29/24 12:59 Pulse Rate 69 09/29/24 12:59 Respiratory Rate 18 09/29/24 12:59 Blood Pressure 133/76 H 09/29/24 12:59 Pulse Oximetry (%) 98 09/29/24 12:59 Oxygen Delivery Method Room Air 09/29/24 12:59 Weakness MDM Narrative MDM Narrative:: 84-year-old female is here today with her daughter. She has had intermittent generalized weakness that has been ongoing for several months. She states she had a 3-day admission at [facility] in [place], [place], where they attempted to identify the cause. She states she had numerous workups including catheterization of the heart which was unremarkable. She denies any falls or injuries. Has no unilateral weakness. No aphasia or unilateral paresthesias. She has had no vision changes. No nausea or vomiting. No diarrhea. Has no congestion or cough. No diarrhea. No skin changes. On exam, patient is nontoxic-appearing in no visible signs distress. Her vital signs are stable. Her CBC, metabolic panel, and urinalysis here are benign. I do believe the patient be discharged from the ER. She will require further outpatient workup. We discussed return precautions. She agrees to return as needed for any worsening or emergent changes. Patient data External records reviewed:: None Clinical information provided by:: patient and family Social determinants that could affect healthcare access:: none Patient has the following chronic illnesses:: Hypertension, diabetes, hypothyroidism How is presenting disease/condition affected by chronic disease/condition?: exacerbated by Evaluation data The following diagnostics were reviewed and interpreted by me:: lab results Lab and/or radiology exams considered but not ordered:: n/a Interpretation Summary: CBC is unremarkable, no evidence of leukocytosis or anemia. Metabolic panel reveals no metabolic derangement. TSH is normal limits at 2.14. Urinalysis does not reveal any urinary tract infection. Medications / Prescriptions Medications or Prescriptions considered but not ordered:: n/a Medication administrations:: n/a Consultations Consultation(s) initiated? (list below): No Diagnosis Weakness Differential Diagnosis: anemia, hypoglycemia, hypothyroidism and dehydration Most likely diagnosis given after review of the tests above:: Generalized weakness, etiology unknown Admission Indicated Admission indicated?: not indicated Admission Request Was there a request for admission?: No Disposition Plan Disposition Plan: Discharge Discharge Attestation Discharge Attestation: The patient and all family members were given an opportunity to ask questions and understood the discharge instructions. Discharge instructions specifically effects, indications for sooner follow up or return to the emergency department, and the expected course of current diagnosis. Patient condition: Stable Discharge Plan Plan Patient Disposition: HOME (Self Care) Patient condition on transfer: Stable Prescriptions/Referrals Prescriptions/Med Rec: No Action metformin 500 mg tablet 500 mg PO BID lisinopril 20 MG tablet 20 mg PO QDAY Qty: 0 thyroid (pork) [[place] Thyroid] 90 MG tablet 90 mg PO QDAY Qty: 0 loratadine-pseudoephedrine [Allergy Relief D-24hr] 10-240 mg Tablet Extended Release 24 Hr 1 tab PO QDAY Multiple Vitamin, Womens Tablet 1 tab PO DAILY docusate sodium [Colace] 100 mg capsule 100 mg PO BID Qty: 60 0RF calcium polycarbophil [Fiber-Tabs] 625 mg Tablet 625 mg PO BID coenzyme Q10 200 mg Capsule 200 mg PO QDAY I-Caps 280-10-2 mg Capsule 1 cap PO QDAY [place]-3 350 mg-235 mg- 90 mg-597 mg Capsule,Delayed Release(Dr/Ec) 2 cap PO QDAY hydrocodone-acetaminophen 10-325 mg Tablet 1 tab PO Q6H MDD 6 PRN (Reason: Pain) Qty: 50 0RF Xarelto 10 mg Tablet 10 mg PO Q24H Qty: 28 0RF Referrals: Samantha Zarate MD [Primary Care Provider] - In 1 week Problem List Clinical Impression: Weakness Patient/Caregiver Discharge Instructions Education Materials: ED Weakness (Uncertain Cause) Additional Instructions: - Follow-up with your primary doctor next week to consider further outpatient workup outpatient workup to consider may include MRI of the brain and possible referral to endocrinology or outpatient adrenal studies. - Please return to the emergency room at anytime for any worsening changes. Print Language: [place] Stand Alone Forms: Andreea Award Info., Patient Portal Info Letter
[2024-09-29 13:06] VITALS: PULSE 76; RESP 18; O2SAT 99
[2024-09-29 13:11] VITALS: BMI 36.9
[2024-09-29 13:55] LABS: Collection Type, Urine Voided
[2024-09-29 14:00] LABS: Basophils # (Auto) 0.0 Thou/mm3 (0.0-0.2); Basophils % (Auto) 0 % (0-2.5); Eosinophils # (Auto) 0.1 Thou/mm3 (0.0-0.5); Eosinophils % (Auto) 1 % (0-10); Hematocrit 38.0 % (36.0-46.0); Hemoglobin 12.9 g/dL (12.0-16.0); Immature Granulocytes Auto 0.02 Thou/mm3 (0.00-0.00); Lymphocytes # (Auto) 2.1 Thou/mm3 (1.0-4.8); Lymphocytes % (Auto) 32 % (10-50); Mean Corpuscular HGB Conc 33.9 g/dl (31.0-37.0); Mean Corpuscular Hemoglobin 29.7 pg (25.0-35.0); Mean Corpuscular Volume 87 fL (80-100); Monocytes # (Auto) 0.4 Thou/mm3 (0.0-0.8); Monocytes % (Auto) 7 % (0-12); Neutrophils # (Auto) 3.9 Thou/mm3 (1.8-7.7); Neutrophils % (Auto) 60 % (37-80); Nucleated Red Blood Cell # 0.00 Thou/mm3 (0.00-0.00); Nucleated Red Blood Cell % 0 /100 WBC (0); Platelet Count 189 Thou/mm3 (140-440); RDW Standard Deviation 42.2 fL (36.4-46.3); Red Blood Count 4.35 Miln/mm3 (4.00-5.20); White Blood Count 6.5 Thou/mm3 (3.6-11.0)
[2024-09-29 14:06] LABS: Bilirubin,Urine Negative (Negative); Blood,Urine Negative (Negative); Clarity,Urine Clear (Clear/Hazy); Color,Urine Colorless (Lt Yel-Yel); Glucose, Urine Negative (Negative); Ketones,Urine Negative (Negative); Leukocyte Esterase,Urine Negative (Negative); Nitrite,Urine Negative (Negative); PH,Urine 8.0 (5.0-7.0); Protein,Urine Negative (Neg - Trace); RBC,Urine < 1 /hpf (0-3); Specific Gravity,Urine 1.005 (1.001-1.035); Squamous Epithelial Cell,Urine < 1 /hpf (0-5); Urobilinogen,Urine Negative mg/dL (0.0-1.0); WBC,Urine < 1 /hpf (0-5)
[2024-09-29 14:20] LABS: Alanine Aminotransferase 15 U/L (10-49); Albumin, Serum 4.0 gm/dL (3.4-4.8); Albumin/Globulin Ratio 1.6 (1.2-2.2); Alkaline Phosphatase 74 U/L (46-116); Anion Gap 5 (7-16); Aspartate Amino Transferase 21 U/L (0-34); BUN/Creatinine Ratio 9 Ratio (12-20); Bilirubin,Total 0.4 mg/dL (0.3-1.2); Blood Urea Nitrogen 7 mg/dL (9-23); Calcium 9.3 mg/dL (8.3-10.6); Calcium (Corrected) 9.3 mg/dL (8.5-10.1); Carbon Dioxide 30.2 mMol/L (20.0-31.0); Chloride 107 mMol/L (98-107); Creatinine (Component) 0.8 mg/dL (0.6-1.3); Estimated Creatinine Clearance 56.1 mL/min (>60); Globulin 2.5 gm/dL (2.3-3.5); Glucose 107 mg/dL (74-106); Osmolality,Calculated 281 (275-295); Potassium 4.4 mMol/L (3.4-5.1); Sodium 142 mMol/L (136-145); Thyroid Stimulating Hormone 2.14 uIU/mL (0.55-4.78); Total Protein 6.5 gm/dL (5.7-8.2); eGFR > 60 See Note
== END 2024-09-29 16:45 | disposition home or self-care (01) ==
PROVIDERS: Physician Assistant Medical; Emergency Provider Family Medicine; PCP Family Medicine
DX: R53.1 Weakness (principal)
CPT/HCPCS: 36415; 71045; 80053; 81001; 84443; 85025; 93005; 99283

== ENCOUNTER 2024-10-03 12:54 | Emergency (ER) | payer MEDICARE, BC, SELFPAY ==
--- NOTE | 2024-10-03 12:57 | EKG_ITS ---
[facility] Test Date: 2024-10-03 Pat Name: SANTOS JACQUES Department: Room: - Gender: Female Medical Liaison: : 1940 Requested By: Mayra Reza Order Number: [id number] Reading MD: Mayra Reza Measurements Intervals [place] Rate: 71 P: 31 RI: 172 QRS: -70 QRSD: 162 T: 77 QT: 425 QTc: 464 Interpretive Statements ELECTRONIC ATRIAL PACEMAKER ELECTRONIC VENTRICULAR PACEMAKER ABNORMAL RHYTHM ECG Compared to ECG 09/29/2024 13:01:40 No significant changes /store/S0/[id number].pdf
--- NOTE | 2024-10-03 12:57 | XR_ITS ---
Examination: AP chest single view TECHNIQUE: Upright AP chest single view Date and time: October 03, 2024 1425 hours INDICATIONS: Generalized weakness today. FINDINGS: Normal heart size Cardiac leads stable position. Atelectasis versus mild pneumonia left base right lung clear IMPRESSION: Atelectasis versus mild pneumonia left base, clinical correlation advised
--- NOTE | 2024-10-03 12:58 | PD.EDWEAK ---
ED Weakness RME/HPI General Chief complaint: Weakness Stated complaint: GENERALIZED WEAKNESS Time Seen by Provider: 10/03/24 12:56 Source: EMS Arrival date/time: 10/03/24 12:54 Mode of arrival: EMS RME / HPI RME / HPI Narrative: 84-year-old female who is here today for generalized weakness that occurred today while shopping. She is brought in by EMS for this. She was seen here recently for similar symptoms. She has had intermittent generalized weakness that has been ongoing for several months. She states she had a 3-day admission at [facility] in [place], [place], where they attempted to identify the cause. She states she had numerous workups including catheterization of the heart which was unremarkable. She denies any falls or injuries. Has no unilateral weakness. No aphasia or unilateral paresthesias. She has had no vision changes. No nausea or vomiting. No diarrhea. Has no congestion or cough. No diarrhea. No skin changes. Related Data Related Data Home Medications ?Medication ?Instructions ?Recorded ?Confirmed lisinopril 20 mg tablet 20 mg PO QDAY #0 tabs 10/05/16 11/10/18 thyroid (pork) 90 mg tablet 90 mg PO QDAY #0 tabs 10/05/16 11/10/18 ([place] Thyroid) metformin 500 mg tablet 500 mg PO BID 11/15/17 11/10/18 loratadine-pseudoephedrine ER 10 1 tab PO QDAY 12/07/17 11/10/18 mg-240 mg tablet,extended [id number] (Allergy Relief D-24hr) oeoakxitsmtj-Rc-iqnx-minerals 1 tab PO DAILY 12/07/17 11/10/18 (Multiple Vitamin, Womens tablet) antiox.multivit 10-ayyvk0e 280 1 cap PO QDAY 11/04/18 11/10/18 mg-lutein 10 mg-zeaxanthin 2 mg capsule (I-Caps) calcium polycarbophil 625 mg 625 mg PO BID 11/04/18 11/10/18 tablet (Fiber-Tabs) coenzyme Q10 200 mg capsule 200 mg PO QDAY 11/04/18 11/10/18 omega 3 350 mg-dha 235 mg-epa 90 2 cap PO QDAY 11/04/18 11/10/18 mg-fish oil 597 mg capsule,delay rel ([place]-3) Previous Rx's ?Medication ?Instructions ?Recorded docusate sodium 100 mg capsule 100 mg PO BID #60 caps 12/17/17 (Colace) hydrocodone 10 mg-acetaminophen 1 tab PO Q6H PRN Pain #50 tabs 11/09/18 325 mg tablet rivaroxaban 10 mg tablet (Xarelto) 10 mg PO Q24H #28 tabs 11/09/18 Allergies Allergy/AdvReac Type Severity Reaction Status Date / Time codeine Allergy Severe SHORTNESS Verified 10/03/24 14:10 OF BREATH morphine AdvReac Intermediate SHORT OF Verified 10/03/24 14:10 BREATH Review of Systems Review of Systems Systems Reviewed: All systems reviewed, normal except as documented Course Quality Measures none Orders Category Date Time Status EKG (ED ONLY) *Do not use* NOW Care 10/03/24 12:57 Completed EKG (ED Only) Stat Exams 10/03/24 12:57 Draft XR chest 1V Stat Exams 10/03/24 12:57 Completed BNP [B-Type Natriuretic Peptide] Stat Lab 10/03/24 14:45 Completed CBC Stat Lab 10/03/24 13:06 Completed CMP [Comprehensive Metabolic Panel] Stat Lab 10/03/24 13:06 Completed Troponin I Stat Lab 10/03/24 13:06 Completed UA, C/S IF [Urinalysis, C/S if Indicated] Stat Lab 10/03/24 15:45 Completed Vital Signs Vital signs: Vital Signs Temperature 98.7 F 10/03/24 13:00 Pulse Rate 71 10/03/24 13:00 Respiratory Rate 18 10/03/24 13:00 Blood Pressure 131/85 H 10/03/24 13:00 Pulse Oximetry (%) 97 10/03/24 13:00 Oxygen Delivery Method Room Air 10/03/24 13:00 Weakness MDM Narrative MDM Narrative:: 84-year-old female who is here today for generalized weakness that occurred today while shopping. She is brought in by EMS for this. She was seen here recently for similar symptoms. She has had intermittent generalized weakness that has been ongoing for several months. She states she had a 3-day admission at [facility] in [place], [place], where they attempted to identify the cause. She states she had numerous workups including catheterization of the heart which was unremarkable. She denies any falls or injuries. Has no unilateral weakness. No aphasia or unilateral paresthesias. She has had no vision changes. No nausea or vomiting. No diarrhea. Has no congestion or cough. No diarrhea. No skin changes. Upon arrival, patient was nontoxic-appearing and in no visible signs distress. Her blood pressure is elevated at 131/85, vital signs are otherwise unremarkable. She is answering questions appropriately. She is alert and awake. Repeat workup was obtained and her CBC, metabolic panel, EKG, was unremarkable with exception of a mildly elevated glucose at 139. Urinalysis is unremarkable results were discussed with patient and her daughter who arrived at a later time. Her daughter states her primary care provider has opted to treat her for chronic sinus infection. She is advised to continue to follow-up with her primary doctor. Return as needed for any worsening or emergent changes. Patient data External records reviewed:: [facility] previous records and EMS form Clinical information provided by:: patient, EMS and family Social determinants that could affect healthcare access:: none Patient has the following chronic illnesses:: Generalized weakness, CHF, hypothyroidism How is presenting disease/condition affected by chronic disease/condition?: exacerbated by Evaluation data The following diagnostics were reviewed and interpreted by me:: lab results (Mild hyperglycemia, otherwise unremarkable) and EKG tracing(s) (Atrial paced rhythm at 71 bpm.) Lab and/or radiology exams considered but not ordered:: n/a Interpretation Summary: Mild hyperglycemia Medications / Prescriptions Medications or Prescriptions considered but not ordered:: n/a Medication administrations:: n/a Consultations Consultation(s) initiated? (list below): No Diagnosis Weakness Differential Diagnosis: anemia, hypoglycemia, sepsis and dehydration Most likely diagnosis given after review of the tests above:: Generalized weakness Admission Indicated Admission indicated?: not indicated Admission Request Was there a request for admission?: No Disposition Plan Disposition Plan: Discharge Discharge Attestation Discharge Attestation: The patient and all family members were given an opportunity to ask questions and understood the discharge instructions. Discharge instructions specifically effects, indications for sooner follow up or return to the emergency department, and the expected course of current diagnosis. Patient condition: Stable Discharge Plan Plan Patient Disposition: HOME (Self Care) Patient condition on transfer: Stable Prescriptions/Referrals Prescriptions/Med Rec: No Action metformin 500 mg tablet 500 mg PO BID lisinopril 20 MG tablet 20 mg PO QDAY Qty: 0 thyroid (pork) [[place] Thyroid] 90 MG tablet 90 mg PO QDAY Qty: 0 loratadine-pseudoephedrine [Allergy Relief D-24hr] 10-240 mg Tablet Extended Release 24 Hr 1 tab PO QDAY Multiple Vitamin, Womens Tablet 1 tab PO DAILY docusate sodium [Colace] 100 mg capsule 100 mg PO BID Qty: 60 0RF calcium polycarbophil [Fiber-Tabs] 625 mg Tablet 625 mg PO BID coenzyme Q10 200 mg Capsule 200 mg PO QDAY I-Caps 280-10-2 mg Capsule 1 cap PO QDAY [place]-3 350 mg-235 mg- 90 mg-597 mg Capsule,Delayed Release(Dr/Ec) 2 cap PO QDAY hydrocodone-acetaminophen 10-325 mg Tablet 1 tab PO Q6H MDD 6 PRN (Reason: Pain) Qty: 50 0RF Xarelto 10 mg Tablet 10 mg PO Q24H Qty: 28 0RF Referrals: No Primary/Family,Physician [Primary Care Provider] - In 1 week Problem List Clinical Impression: Weakness Patient/Caregiver Discharge Instructions Education Materials: ED Weakness (Uncertain Cause) Additional Instructions: - Follow-up with your primary doctor regarding your ongoing episodes of weakness. - Return here as needed for any emergent changes or concerns. Print Language: Luxembour[place] Stand Alone Forms: Andreea Award Info., Patient Portal Info Letter
[2024-10-03 13:00] VITALS: BP 131/85; PULSE 71; RESP 18; TEMP 37.1; O2SAT 97
[2024-10-03 13:34] LABS: Basophils # (Auto) 0.0 Thou/mm3 (0.0-0.2); Basophils % (Auto) 0 % (0-2.5); Eosinophils # (Auto) 0.1 Thou/mm3 (0.0-0.5); Eosinophils % (Auto) 1 % (0-10); Hematocrit 41.2 % (36.0-46.0); Hemoglobin 14.3 g/dL (12.0-16.0); Immature Granulocytes Auto 0.03 Thou/mm3 (0.00-0.00); Lymphocytes # (Auto) 2.0 Thou/mm3 (1.0-4.8); Lymphocytes % (Auto) 23 % (10-50); Mean Corpuscular HGB Conc 34.7 g/dl (31.0-37.0); Mean Corpuscular Hemoglobin 29.7 pg (25.0-35.0); Mean Corpuscular Volume 86 fL (80-100); Monocytes # (Auto) 0.5 Thou/mm3 (0.0-0.8); Monocytes % (Auto) 6 % (0-12); Neutrophils # (Auto) 6.1 Thou/mm3 (1.8-7.7); Neutrophils % (Auto) 70 % (37-80); Nucleated Red Blood Cell # 0.00 Thou/mm3 (0.00-0.00); Nucleated Red Blood Cell % 0 /100 WBC (0); Platelet Count 201 Thou/mm3 (140-440); RDW Standard Deviation 41.4 fL (36.4-46.3); Red Blood Count 4.81 Miln/mm3 (4.00-5.20); White Blood Count 8.6 Thou/mm3 (3.6-11.0)
[2024-10-03 13:35] LABS: Alanine Aminotransferase 18 U/L (10-49); Albumin, Serum 4.3 gm/dL (3.4-4.8); Albumin/Globulin Ratio 1.5 (1.2-2.2); Alkaline Phosphatase 77 U/L (46-116); Anion Gap 11 (7-16); Aspartate Amino Transferase 33 U/L (0-34); BUN/Creatinine Ratio 9 Ratio (12-20); Bilirubin,Total 0.4 mg/dL (0.3-1.2); Blood Urea Nitrogen 9 mg/dL (9-23); Calcium 9.8 mg/dL (8.3-10.6); Calcium (Corrected) 9.8 mg/dL (8.5-10.1); Carbon Dioxide 26.3 mMol/L (20.0-31.0); Chloride 105 mMol/L (98-107); Creatinine (Component) 1.0 mg/dL (0.6-1.3); Globulin 2.8 gm/dL (2.3-3.5); Glucose 139 mg/dL (74-106); Osmolality,Calculated 283 (275-295); Potassium 4.9 mMol/L (3.4-5.1); Sodium 142 mMol/L (136-145); Total Protein 7.1 gm/dL (5.7-8.2); Troponin I < 0.002 ng/mL (0.0-0.045); eGFR 56 See Note
[2024-10-03 14:10] VITALS: PULSE 74; RESP 18; O2SAT 96
[2024-10-03 15:14] LABS: B-Type Natriuretic Peptide 38 pg/mL (0-100)
[2024-10-03 16:02] LABS: Collection Type, Urine Voided
[2024-10-03 16:15] LABS: Bilirubin,Urine Negative (Negative); Blood,Urine Negative (Negative); Clarity,Urine Clear (Clear/Hazy); Color,Urine Yellow (Lt Yel-Yel); Culture Indicated,Urine Not Indicated; Glucose, Urine Negative (Negative); Ketones,Urine Negative (Negative); Leukocyte Esterase,Urine Negative (Negative); Nitrite,Urine Negative (Negative); PH,Urine 7.5 (5.0-7.0); Protein,Urine Negative (Neg - Trace); RBC,Urine 1 /hpf (0-3); Specific Gravity,Urine 1.013 (1.001-1.035); Squamous Epithelial Cell,Urine 1 /hpf (0-5); Urobilinogen,Urine Negative mg/dL (0.0-1.0); WBC,Urine 1 /hpf (0-5)
[2024-10-03 17:00] VITALS: BP 150/86; PULSE 77; RESP 18; TEMP 36.7; O2SAT 97
== END 2024-10-03 17:18 | disposition home or self-care (01) ==
PROVIDERS: Physician Assistant Medical; Emergency Provider Family Medicine
DX: R53.1 Weakness (principal); I50.9 Heart failure, unspecified; R73.9 Hyperglycemia, unspecified; R94.31 Abnormal electrocardiogram [ECG] [EKG]; Z95.0 Presence of cardiac pacemaker
CPT/HCPCS: 36415; 71045; 80053; 81001; 83880; 84484; 85025; 93005; 99283

== ENCOUNTER → 2024-11-14 | Outpatient (CLI) | payer MEDICARE, BC, SELFPAY ==
[2024-11-14 16:05] LABS: Basophils # (Auto) 0.0 Thou/mm3 (0.0-0.2); Basophils % (Auto) 0 % (0-2.5); Eosinophils # (Auto) 0.1 Thou/mm3 (0.0-0.5); Eosinophils % (Auto) 1 % (0-10); Hematocrit 39.4 % (36.0-46.0); Hemoglobin 13.0 g/dL (12.0-16.0); Immature Granulocytes Auto 0.03 Thou/mm3 (0.00-0.00); Lymphocytes # (Auto) 2.1 Thou/mm3 (1.0-4.8); Lymphocytes % (Auto) 27 % (10-50); Mean Corpuscular HGB Conc 33.0 g/dl (31.0-37.0); Mean Corpuscular Hemoglobin 29.5 pg (25.0-35.0); Mean Corpuscular Volume 90 fL (80-100); Monocytes # (Auto) 0.6 Thou/mm3 (0.0-0.8); Monocytes % (Auto) 7 % (0-12); Neutrophils # (Auto) 5.1 Thou/mm3 (1.8-7.7); Neutrophils % (Auto) 64 % (37-80); Nucleated Red Blood Cell # 0.00 Thou/mm3 (0.00-0.00); Nucleated Red Blood Cell % 0 /100 WBC (0); Platelet Count 229 Thou/mm3 (140-440); RDW Standard Deviation 43.7 fL (36.4-46.3); Red Blood Count 4.40 Miln/mm3 (4.00-5.20); White Blood Count 8.0 Thou/mm3 (3.6-11.0)
[2024-11-14 16:12] LABS: INR 1.0 (0.9-1.3); Partial Thromboplastin Time 44.4 Seconds (22.0-36.0); Prothrombin Time 11.1 Seconds (9.0-12.2)
[2024-11-14 16:15] LABS: Anion Gap 9 (7-16); BUN/Creatinine Ratio 20 Ratio (12-20); Blood Urea Nitrogen 16 mg/dL (9-23); Calcium 9.7 mg/dL (8.3-10.6); Carbon Dioxide 30.1 mMol/L (20.0-31.0); Chloride 103 mMol/L (98-107); Creatinine (Component) 0.8 mg/dL (0.6-1.3); Glucose 160 mg/dL (74-106); Osmolality,Calculated 287 (275-295); Potassium 4.4 mMol/L (3.4-5.1); Sodium 142 mMol/L (136-145); eGFR > 60 See Note
== END | disposition home or self-care (01) ==
LOC: COPL 14:04
PROVIDERS: PCP Family Medicine; Referring Provider Internal Medicine; Visit Provider Internal Medicine
DX: I25.10 Atherosclerotic heart disease of native coronary artery without angina pectoris (principal); I48.91 Unspecified atrial fibrillation
CPT/HCPCS: 36415; 80048; 85025; 85610; 85730

== ENCOUNTER 2024-12-05 09:26 | Emergency (ER) | payer MEDICARE, BC, SELFPAY ==
[2024-12-05 09:28] VITALS: BP 145/79; PULSE 70; RESP 19; TEMP 36.6; O2SAT 99
[2024-12-05 09:37] VITALS: PULSE 74; RESP 18; O2SAT 99; BMI 37.8
--- NOTE | 2024-12-05 09:41 | EKG_ITS ---
[facility] Test Date: 2024-12-05 Pat Name: SANTOS JACQUES Department: Room: - Gender: Female Director Data Management: : 1940 Requested By: Neptali Strickland Order Number: [id number] Reading MD: Neptali Strickland Measurements Intervals [place] Rate: 70 P: 141 NV: 176 QRS: -69 QRSD: 165 T: 75 QT: 429 QTc: 465 Interpretive Statements ELECTRONIC ATRIAL PACEMAKER ELECTRONIC VENTRICULAR PACEMAKER ABNORMAL RHYTHM ECG Compared to ECG 10/03/2024 15:14:34 No significant changes /store/S0/[id number]
[2024-12-05 10:24] LABS: Basophils # (Auto) 0.0 Thou/mm3 (0.0-0.2); Basophils % (Auto) 0 % (0-2.5); Eosinophils # (Auto) 0.0 Thou/mm3 (0.0-0.5); Eosinophils % (Auto) 1 % (0-10); Hematocrit 38.5 % (36.0-46.0); Hemoglobin 12.8 g/dL (12.0-16.0); Immature Granulocytes Auto 0.02 Thou/mm3 (0.00-0.00); Lymphocytes # (Auto) 1.8 Thou/mm3 (1.0-4.8); Lymphocytes % (Auto) 25 % (10-50); Mean Corpuscular HGB Conc 33.2 g/dl (31.0-37.0); Mean Corpuscular Hemoglobin 29.2 pg (25.0-35.0); Mean Corpuscular Volume 88 fL (80-100); Monocytes # (Auto) 0.5 Thou/mm3 (0.0-0.8); Monocytes % (Auto) 7 % (0-12); Neutrophils # (Auto) 4.8 Thou/mm3 (1.8-7.7); Neutrophils % (Auto) 67 % (37-80); Nucleated Red Blood Cell # 0.00 Thou/mm3 (0.00-0.00); Nucleated Red Blood Cell % 0 /100 WBC (0); Platelet Count 209 Thou/mm3 (140-440); RDW Standard Deviation 42.7 fL (36.4-46.3); Red Blood Count 4.39 Miln/mm3 (4.00-5.20); White Blood Count 7.2 Thou/mm3 (3.6-11.0)
--- NOTE | 2024-12-05 10:32 | PD.EDWEAK ---
ED Weakness RME/HPI General Chief complaint: Weakness Stated complaint: WEAKNESS AND DIZZINESS Time Seen by Provider: 12/05/24 09:41 Arrival date/time: 12/05/24 09:26 Mode of arrival: EMS RME / HPI RME / HPI Narrative: Ms. Bailon is a 84-year-old female with past medical history of hypertension, hypothyroidism and status post pacemaker (follows Dr Hobbs) who presented to [facility] ED on 12/05/2024 with a chief complaint of generalized weakness. Patient reported that she has been feeling weak lately and does not feel like herself, daughter at bedside assisted in providing history, she reported that the patient was fasting since overnight 8:30 PM for lab draw this morning and earlier before this lab draw she complained of dizziness and then decided to come to ED for further evaluation. She does endorse that she had a headache about a month ago felt like tightness in the forehead and has not had any more episodes. Patient reports that she was recently seen by her clinical lab technologist had an angiogram done for her lower extremities, had her pacemaker interrogated recently as well. Patient denies any vertigo, neck pain, falls and headache Related Data Home Medications ?Medication ?Instructions ?Recorded ?Confirmed lisinopril 20 mg tablet 20 mg PO QDAY #0 tabs 10/05/16 12/05/24 thyroid (pork) 90 mg tablet 90 mg PO QDAY #0 tabs 10/05/16 12/05/24 ([place] Thyroid) Allergies Allergy/AdvReac Type Severity Reaction Status Date / Time codeine Allergy Severe SHORTNESS Verified 10/03/24 14:10 OF BREATH morphine AdvReac Intermediate SHORT OF Verified 10/03/24 14:10 BREATH Review of Systems Review of Systems Narrative Review of Systems: ROS: -CONSTITUTIONAL: Denies weight loss, fever and chills. Positive for weakness. -HEENT: Denies changes in vision and hearing. -RESPIRATORY: Denies SOB and cough. -CV: Denies palpitations and Chest Pain. -GI: Denies abdominal pain, nausea, vomiting,constipation and diarrhea. -: Denies dysuria and urinary frequency. -MSK: Denies myalgia and joint pain. -SKIN: Denies rash and pruritus. -NEUROLOGICAL: Denies headache and syncope. -PSYCHIATRIC: Denies recent changes in mood. Denies anxiety and depression. Past Medical History Past Medical History Comments PMH COMMENT: PMH: Positive for hypertension, status post pacemaker, hypothyroidism PSHx: Pacemaker placement Allergies: Codeine?shortness of breath, morphine?shortness of breath Social history: -Smoking: Denies -Alcohol Use: Denies -Illicit Drug Use: Denies Lives with daughter who assists in ADLs, walks with a walker Family History: Denies any pertinent family history ED Exam Narrative Physical exam: General: Morbid obese not in any acute distress Head normocephalic HEENT: Within acceptable limits Neck is supple nontender Chest equal chest rise nontender to palpation Respiratory: Clear to auscultation no wheezes crackles or rubs CV: Rate rhythm is regular no murmurs rubs or clicks Abdomen is distended secondary to body habitus soft nontender no masses positive bowel sounds all 4 quadrants Back: No CVA tenderness no spinous process tenderness from cervical spine thoracic and lumbar spine Skin: Intact no petechiae rash induration ulceration or crepitus Extremities: Moving all extremity against resistance cap refill less than 2 seconds neurosensory intact Neuro: Awake alert oriented x3 Glascow coma 15 no focal deficits Course Course Course Narrative: Patient had CBC CMP and other labs done as requested by daughter as patient was supposed to undergo lab workup. CBC unremarkable no evidence of anemia, CMP shows glucose 123, otherwise A1c elevated at 6.8, lipid panel shows triglycerides 337, cholesterol 209, HDL 34, vitamin D level 18.4, TSH 0.32, free T4 within normal limits 0.89. Urinalysis negative for UTI, EKG showed paced rhythm, throughout the ER stay patient's vitals were unremarkable other than mildly elevated blood pressure readings. Orthostatic vitals positive, Patient's blood pressure sitting 167/99, standing 141/81, systolic difference of greater than 20 orthostatic positive patient was given 500 cc LR bolus. Patient encouraged to maintain adequate hydration, follow-up with primary care physician for management of diabetes, hyperlipidemia and thyroid. Patient educated on slow to rise technique. Quality Measures none Orders Category Date Time Status Bedside COVID-19 Antigen Test NOW Care 12/05/24 10:16 Completed Bedside Influenza A&B Antigen Test NOW Care 12/05/24 10:16 Completed EKG (ED ONLY) *Do not use* NOW Care 12/05/24 09:41 Completed Orthostatic Vitals NOW Care 12/05/24 10:11 Completed EKG (ED Only) Stat Exams 12/05/24 09:41 Draft A1C [Glycohemoglobin w (eAG)] Stat Lab 12/05/24 10:20 Completed CBC Stat Lab 12/05/24 10:20 Completed CMP [Comprehensive Metabolic Panel] Stat Lab 12/05/24 10:20 Completed Free T4 (Free Thyroxine) Stat Lab 12/05/24 10:20 Completed Lipid Panel Stat Lab 12/05/24 10:20 Completed Magnesium Stat Lab 12/05/24 10:20 Completed Microalbumin, Ur Rnd w Creat Stat Lab 12/05/24 10:42 Completed TSH [Thyroid Stimulating Hormone] Stat Lab 12/05/24 10:20 Completed Urinalysis, C/S if Indicated Stat Lab 12/05/24 10:42 Completed Vitamin D 25 Hydroxy Total Stat Lab 12/05/24 10:20 Completed Sodium Chloride 0.9% 500 ml [Ns] 500 ml Med 12/05/24 11:13 Discontinued IV 999 mls/hr Vital Signs Vital signs: Vital Signs Temperature 97.8 F 12/05/24 09:28 Pulse Rate 70 12/05/24 09:28 Respiratory Rate 19 12/05/24 09:28 Blood Pressure 145/79 H 12/05/24 09:28 Pulse Oximetry (%) 99 12/05/24 09:28 Weakness MDM Narrative MDM Narrative:: #Dizziness #Hypertension 84-year-old female with past medical history as above presented with history of generalized weakness, did not eat since 8:30 PM yesterday was scheduled for lab draw this morning which was fasting. Patient had CBC CMP and other labs done as requested by daughter as patient was supposed to undergo lab workup. CBC unremarkable no evidence of anemia, CMP shows glucose 123, otherwise A1c elevated at 6.8, lipid panel shows triglycerides 337, cholesterol 209, HDL 34, vitamin D level 18.4, TSH 0.32, free T4 within normal limits 0.89. Urinalysis negative for UTI, EKG showed paced rhythm, throughout the ER stay patient's vitals were unremarkable other than mildly elevated blood pressure readings. Orthostatic vitals positive, Patient's blood pressure sitting 167/99, standing 141/81, systolic difference of greater than 20 orthostatic positive patient was given 500 cc LR bolus. Patient encouraged to maintain adequate hydration, follow-up with primary care physician for management of diabetes, hyperlipidemia and thyroid. Patient educated on slow to rise technique. Case discussed with Attending Physician Dr. Jonah Giraldo MD Internal Medicine PGY-2 Disclaimer: This note was dictated by speech recognition. Minor errors in individual pension consultant may be present due to voice recognition software. Patient data External records reviewed:: [facility] previous records and EMS form Clinical information provided by:: patient and family Social determinants that could affect healthcare access:: none Patient has the following chronic illnesses:: Pacemaker placement, hypothyroidism and hypertension How is presenting disease/condition affected by chronic disease/condition?: uneffected by Evaluation data The following diagnostics were reviewed and interpreted by me:: lab results, radiology exam(s) and EKG tracing(s) Lab and/or radiology exams considered but not ordered:: None Interpretation Summary: CBC unremarkable no evidence of anemia, CMP shows glucose 123, otherwise A1c elevated at 6.8, lipid panel shows triglycerides 337, cholesterol 209, HDL 34, vitamin D level 18.4, TSH 0.32, free T4 within normal limits 0.89. Urinalysis negative for UTI, EKG showed paced rhythm, Orthostatic vitals positive, Patient's blood pressure sitting 167/99, standing 141/81, systolic difference of greater than 20 Medications / Prescriptions Medications or Prescriptions considered but not ordered:: None Medication administrations:: Medication Administration History Discontinued Medications Sodium Chloride (Ns) 500 mls @ 999 mls/hr IV .Q31M ONE Stop: 12/05/24 11:43 Last Infusion: 12/05/24 11:58 Dose: Infused Documented By: Admin: 12/05/24 11:27 Dose: 999 mls/hr Documented By: EF As above Consultations Consultation(s) initiated? (list below): No Diagnosis Weakness Differential Diagnosis: hypothyroidism and other (Orthostatic hypotension, dehydration) Most likely diagnosis given after review of the tests above:: Dehydration, orthostatic hypotension Admission Indicated Admission indicated?: not indicated Admission Request Was there a request for admission?: No Disposition Plan Disposition Plan: Discharge Discharge Attestation Discharge Attestation: The patient and all family members were given an opportunity to ask questions and understood the discharge instructions. Discharge instructions specifically effects, indications for sooner follow up or return to the emergency department, and the expected course of current diagnosis. Patient condition: Stable Discharge Plan Plan Patient Disposition: HOME (Self Care) Patient condition on transfer: Stable Health Concerns: - Maintain adequate hydration please 2-3 Litres of water daily - Practice slow to rise technique. - Follow up with PCP for optimization of thyroid regimen, discuss about elevated A1c and elevated Cholesterol - Follow up with your clinical lab technologist for continuity of care and discuss with him your pacemaker function - Please return to ED if your symptoms worsen - Follow up with PCP in 1 week to discuss findings as above - Continue home medications lisinopril 20mg daily and [place] Thyroid 90mg Prescriptions/Referrals Prescriptions/Med Rec: Continued lisinopril 20 MG tablet 20 mg PO QDAY Qty: 0 thyroid (pork) [[place] Thyroid] 90 MG tablet 90 mg PO QDAY Qty: 0 Referrals: Samantha Zarate MD [Primary Care Provider, Family Practice] - In 1 week Problem List Clinical Impression: Orthostatic dizziness Patient/Caregiver Discharge Instructions Education Materials: Dehydration Print Language: Italian Stand Alone Forms: Andreea Award Info., Patient Portal Info Letter MD Attestation Attestation I, Dr. Mckenzie, have reviewed the history, exam, and assessment of the patient. I have evaluated the patient independently and agree with the plan of care documented by Dr. Giraldo. All diagnostic studies were reviewed and discussed. I confirm the diagnosis as documented by the Resident. I was present during the Medical Decision Making for this patient. The patient's plan of care was created between myself and the Resident and consistent with our discussion of the patient's case.
[2024-12-05 10:46] LABS: Collection Type, Urine Clean Catch
[2024-12-05 10:47] LABS: Alanine Aminotransferase 12 U/L (10-49); Albumin, Serum 3.9 gm/dL (3.4-4.8); Albumin/Globulin Ratio 1.5 (1.2-2.2); Alkaline Phosphatase 69 U/L (46-116); Anion Gap 9 (7-16); Aspartate Amino Transferase 22 U/L (0-34); BUN/Creatinine Ratio 14 Ratio (12-20); Bilirubin,Total 0.5 mg/dL (0.3-1.2); Blood Urea Nitrogen 13 mg/dL (9-23); Calcium 9.4 mg/dL (8.3-10.6); Calcium (Corrected) 9.5 mg/dL (8.5-10.1); Carbon Dioxide 27.6 mMol/L (20.0-31.0); Chloride 105 mMol/L (98-107); Creatinine (Component) 0.9 mg/dL (0.6-1.3); Estimated Creatinine Clearance 48.6 mL/min (>60); Free T4 (Free Thyroxine) 0.89 ng/dL (0.89-1.76); Globulin 2.6 gm/dL (2.3-3.5); Glucose 123 mg/dL (74-106); Magnesium 1.7 mg/dL (1.6-2.6); Osmolality,Calculated 284 (275-295); Potassium 4.8 mMol/L (3.4-5.1); Sodium 142 mMol/L (136-145); Thyroid Stimulating Hormone 0.32 uIU/mL (0.55-4.78); Total Protein 6.5 gm/dL (5.7-8.2); eGFR > 60 See Note
[2024-12-05 10:53] LABS: Bilirubin,Urine Negative (Negative); Blood,Urine Negative (Negative); Clarity,Urine Clear (Clear/Hazy); Color,Urine Lt-Yellow (Lt Yel-Yel); Culture Indicated,Urine Not Indicated; Glucose, Urine Negative (Negative); Ketones,Urine Negative (Negative); Leukocyte Esterase,Urine Negative (Negative); Nitrite,Urine Negative (Negative); PH,Urine 7.5 (5.0-7.0); Protein,Urine Negative (Neg - Trace); RBC,Urine < 1 /hpf (0-3); Specific Gravity,Urine 1.008 (1.001-1.035); Squamous Epithelial Cell,Urine 1 /hpf (0-5); Urobilinogen,Urine Negative mg/dL (0.0-1.0); WBC,Urine 1 /hpf (0-5)
[2024-12-05 10:56] VITALS: BP 145/87; PULSE 79; RESP 17; TEMP 36.6; O2SAT 98
[2024-12-05 11:00] VITALS: BP 141/81; BP 145/87; BP 167/99; PULSE 74; PULSE 79; PULSE 88
[2024-12-05 11:03] LABS: Glucose Estimated Average 148 mg/dL (80-131); Hemoglobin A1C 6.8 % Hgb (4.8-6.0)
[2024-12-05 11:06] LABS: Cardiac Risk Estimate 6.1 RATIO (3.7-5.6); Cholesterol 209 mg/dL (132-200); HDL Cholesterol 34 mg/dL (40-60); LDL Cholesterol,Calculated 108 mg/dL (0-130); Triglycerides 337 mg/dL (30-150)
[2024-12-05 11:10] LABS: Vitamin D 25 Hydroxy Total 80.4 ng/mL (7.3-40.2)
[2024-12-05 11:26] LABS: Creatinine MALB Rnd Ur 33 mg/dL (30-125); Microalbumin, Random Urine < 3 mg/L (0-300)
[2024-12-05] MEDS: SODIUM CHLORIDE 0.9% 500 ML 500 ML 999 ML IV (11:27)
== END 2024-12-05 12:06 | disposition home or self-care (01) ==
PROVIDERS: Emergency Provider Emergency Medicine; PCP Family Medicine
DX: R42 Dizziness and giddiness (principal); E03.9 Hypothyroidism, unspecified; I10 Essential (primary) hypertension
CPT/HCPCS: 36415; 80053; 80061; 81001; 82043; 82306; 82570; 83036; 83735; 84439; 84443; 85025; 87400; 87811; 93005; 96360; 99284; J7999

== ENCOUNTER → 2025-01-09 | Outpatient (CLI) | payer MEDICARE, BC, SELFPAY ==
[2025-01-09 16:07] LABS: Free T4 (Free Thyroxine) 0.88 ng/dL (0.89-1.76); Thyroid Stimulating Hormone 0.31 uIU/mL (0.55-4.78)
== END | disposition home or self-care (01) ==
LOC: COPL 14:12
PROVIDERS: PCP Family Medicine; Referring Provider Registered Nurse; Visit Provider Registered Nurse
DX: E03.9 Hypothyroidism, unspecified (principal)
CPT/HCPCS: 36415; 84439; 84443

== ENCOUNTER 2025-03-10 12:19 | Emergency (ER) | payer MEDICARE, BC, SELFPAY ==
[2025-03-10 12:28] VITALS: PULSE 86; BMI 36.6
--- NOTE | 2025-03-10 12:28 | XR_ITS ---
Examination: CT abdomen with intravenous contrast. CT pelvis with intravenous contrast. 2-D sagittal and coronal reconstructions. Date and time of exam: 03/10/2025 2:30 PM Indication: Left groin pain x3 weeks CTDI: vol (mGy) 13.2 DLP: (mGycm) 689 09/02/2017 Technique: Axial sections of the abdomen and pelvis have been obtained post contrast intravenous injection 3 mm slice thickness. 2-D coronal and sagittal reconstructions were obtained. Low dose protocols were performed. One or more of the following dose reduction techniques were used; automated exposure control, adjustment of the mA and/or KV according to patient size, use of iterative reconstruction technique. Intravenous injection Isovue 370/60 mL Findings: Incidental images of the lung bases demonstrates that they are clear. There are no basilar infiltrates or pleural effusions. The heart size is normal. Imaging through the upper abdomen demonstrates multiple hepatic cysts measuring up to 1.8 cm. Liver otherwise unremarkable. Multiple radiopaque gallbladder calculi measuring up to 1 cm. No evidence of gallbladder wall thickening or pericholecystic fluid. Pancreas and spleen appear unremarkable The adrenal glands are unremarkable. There is bilateral renal cortical thinning with multiple simple appearing cysts measuring up to 5 cm. No evidence of solid masses, calculi or hydronephrosis. The abdominal aorta contains scattered atherosclerotic calcifications otherwise unremarkable. There is no periaortic lymphadenopathy. The small bowel loops and colon have a normal appearance. There is no evidence of an intra-abdominal inflammatory process. The appendix is not definitively visualized. No evidence of right lower quadrant inflammatory changes 13 mm oval soft tissue density mass in the superficial subcutaneous tissue of the lower pelvis 4 cm from the midline. The urinary bladder is not distended and appears entirely normal. There is no evidence of an abdominal wall hernia. The osseous structures appear intact. Impression: Cholelithiasis without evidence of cholecystitis 13 mm oval soft tissue density mass in the superficial subcutaneous tissue of the lower pelvis 4 cm from the midline. Findings nonspecific and appear benign. This can be further characterized with ultrasound if clinically indicated.. Multiple chronic changes as above
--- NOTE | 2025-03-10 12:28 | XR_ITS ---
Examination: Duplex scan of the left lower extremity, unilateral Date and time of exam: 03/10/2025, 1:03 p.m. Technique: Duplex scan of the extremity veins using B-mode/grayscale imaging and Doppler spectral analysis and color flow Attention is directed to internal echogenicity, compression and augmentation involving these veins, color flow assessment, spectral analysis Findings: Major deep venous structures in the extremity demonstrate normal course and caliber. There is no evidence of deep vein thrombosis. Normal color flow and spectral analysis Impression: Negative for DVT.. 3.1 x 1.4 x 1.9 cm left posterior popliteal cyst.
[2025-03-10 12:49] VITALS: BP 163/88; PULSE 76; RESP 18; TEMP 36.8; O2SAT 98
[2025-03-10] MEDS: ACETAMINOPHEN 325 MG TABLET 650 MG PO (13:05)
--- NOTE | 2025-03-10 13:10 | XR_ITS ---
Exam: Chest 1 view, AP Date and time of exam: 03/10/2025, 1:17 p.m. Comparison: 10/03/2024 INDICATION: Chest pain Findings: Normal heart size. No mediastinal adenopathy. No acute fracture No pulmonary edema or pneumonia. Stable left-sided dual-lead pacing device Impression: No active disease.
--- NOTE | 2025-03-10 13:10 | EKG_ITS ---
[facility] Test Date: 2025-03-10 Pat Name: SANTOS JACQUES Department: Room: - Gender: Female In Tube Conversion Technician: : 1940 Requested By: Joslyn Morales Order Number: [id number] Reading MD: Joslyn Morales Measurements Intervals [place] Rate: 75 P: 45 LA: 205 QRS: -71 QRSD: 155 T: 79 QT: 409 QTc: 459 Interpretive Statements ELECTRONIC VENTRICULAR PACEMAKER ABNORMAL RHYTHM ECG Compared to ECG 12/05/2024 09:53:24 Atrial-paced complex(es) or rhythm no longer present /store/S0/[id number]/[id number].pdf
[2025-03-10 13:29] VITALS: PULSE 71
[2025-03-10 13:32] LABS: Basophils # (Auto) 0.0 Thou/mm3 (0.0-0.2); Basophils % (Auto) 0 % (0-2.5); Eosinophils # (Auto) 0.1 Thou/mm3 (0.0-0.5); Eosinophils % (Auto) 1 % (0-10); Hematocrit 40.9 % (36.0-46.0); Hemoglobin 13.6 g/dL (12.0-16.0); Immature Granulocytes Auto 0.02 Thou/mm3 (0.00-0.00); Lymphocytes # (Auto) 2.2 Thou/mm3 (1.0-4.8); Lymphocytes % (Auto) 30 % (10-50); Mean Corpuscular HGB Conc 33.3 g/dl (31.0-37.0); Mean Corpuscular Hemoglobin 29.1 pg (25.0-35.0); Mean Corpuscular Volume 87 fL (80-100); Monocytes # (Auto) 0.5 Thou/mm3 (0.0-0.8); Monocytes % (Auto) 7 % (0-12); Neutrophils # (Auto) 4.5 Thou/mm3 (1.8-7.7); Neutrophils % (Auto) 61 % (37-80); Nucleated Red Blood Cell # 0.00 Thou/mm3 (0.00-0.00); Nucleated Red Blood Cell % 0 /100 WBC (0); Platelet Count 208 Thou/mm3 (140-440); RDW Standard Deviation 42.2 fL (36.4-46.3); Red Blood Count 4.68 Miln/mm3 (4.00-5.20); White Blood Count 7.3 Thou/mm3 (3.6-11.0)
[2025-03-10 13:47] LABS: B-Type Natriuretic Peptide 62 pg/mL (0-100)
[2025-03-10 13:48] LABS: Alanine Aminotransferase 13 U/L (10-49); Albumin, Serum 4.4 gm/dL (3.4-4.8); Albumin/Globulin Ratio 1.6 (1.2-2.2); Alkaline Phosphatase 70 U/L (46-116); Anion Gap 8 (7-16); Aspartate Amino Transferase 17 U/L (0-34); BUN/Creatinine Ratio 13 Ratio (12-20); Bilirubin,Total 0.3 mg/dL (0.3-1.2); Blood Urea Nitrogen 10 mg/dL (9-23); Calcium 9.5 mg/dL (8.3-10.6); Calcium (Corrected) 9.5 mg/dL (8.5-10.1); Carbon Dioxide 26.6 mMol/L (20.0-31.0); Chloride 106 mMol/L (98-107); Creatinine (Component) 0.8 mg/dL (0.6-1.3); Estimated Creatinine Clearance 54.8 mL/min (>60); Globulin 2.7 gm/dL (2.3-3.5); Glucose 96 mg/dL (74-106); Lipase 34 U/L (12-53); Magnesium 1.8 mg/dL (1.6-2.6); Osmolality,Calculated 280 (275-295); Potassium 4.0 mMol/L (3.4-5.1); Sodium 141 mMol/L (136-145); Total Protein 7.1 gm/dL (5.7-8.2); Troponin I < 0.020 ng/mL (0.0-0.045); eGFR > 60 See Note
[2025-03-10 13:49] LABS: Collection Type, Urine Clean Catch
[2025-03-10 14:07] LABS: INR 1.0 (0.9-1.3); Partial Thromboplastin Time 50.6 Seconds (22.0-36.0); Prothrombin Time 10.5 Seconds (9.0-12.2)
[2025-03-10 14:28] LABS: Bilirubin,Urine Negative (Negative); Blood,Urine Negative (Negative); Clarity,Urine Clear (Clear/Hazy); Color,Urine Lt-Yellow (Lt Yel-Yel); Culture Indicated,Urine Not Indicated; Glucose, Urine Negative (Negative); Ketones,Urine Negative (Negative); Leukocyte Esterase,Urine Negative (Negative); Nitrite,Urine Negative (Negative); PH,Urine 7.0 (5.0-7.0); Protein,Urine Negative (Neg - Trace); RBC,Urine 1 /hpf (0-3); Specific Gravity,Urine 1.017 (1.001-1.035); Squamous Epithelial Cell,Urine 1 /hpf (0-5); Urobilinogen,Urine Negative mg/dL (0.0-1.0); WBC,Urine 1 /hpf (0-5)
[2025-03-10 14:44] VITALS: BP 152/77; PULSE 76; RESP 17; TEMP 36.7; O2SAT 99
--- NOTE | 2025-03-10 15:24 | EDNOTE_ITS ---
ED Extremity Problem RME/HPI General Chief complaint: Extremity Injury, Lower Stated complaint: LEG PAIN Time Seen by Provider: 03/10/25 12:22 Arrival date/time: 03/10/25 12:19 RME / HPI RME / HPI Narrative: 85-year-old female patient complaining of left lower extremity swelling and pain x 4 days. Also complains of feeling a lump in her left groin. States she has a history of hernia with repair and is concerned for recurrence of the hernia. States her daughter would not bring her so she called EMS. States her daughter has been rubbing some salve on her leg with some relief. Discussed with caregiver who is at bedside later. Caregiver states she tries to get the patient to elevate her legs, stay active, and has also tried various sizes of compression hose during but the patient has been unable to tolerate them. Regarding the morphine allergy, caregiver states she was given morphine 4 years ago after a hip replacement and had some shallow breathing . Related Data Home Medications ?Medication ?Instructions ?Recorded ?Confirmed lisinopril 20 mg tablet 20 mg PO QDAY #0 tabs 12/05/24 thyroid (pork) 90 mg tablet 90 mg PO QDAY #0 tabs 09/2612/05/24 ([place] Thyroid) Allergies Allergy/AdvReac Type Severity Reaction Status Date / Time codeine Allergy Severe SHORTNESS Verified 10/03/24 14:10 OF BREATH morphine AdvReac Intermediate SHORT OF Verified 10/03/24 14:10 BREATH Review of Systems Review of Systems Systems Reviewed: All systems reviewed, normal except as documented ED Exam Narrative Physical exam: GENERAL APPEARANCE: alert and oriented x 4, well-developed, well-nourished, no acute distress HEENT: Normocephalic, atraumatic; pupils equal, round, reactive to light; EOMI; mucous membranes pink, moist; oropharynx clear LUNGS: CTABL; no wheezes, no rales, no rhonchi HEART: Regular rate, regular rhythm; normal S1, S2; no murmurs ABDOMEN: Obese, non distended; normal BS; soft, palpable soft tissue mass in left groin of uncertain etiology, nontender EXTREMITIES: atraumatic; non-pitting edema, no erythema NEUROLOGIC: awake; alert and oriented x4; cranial nerves II-XII grossly intact; no focal sensory or motor deficits PSYCHIATRIC: appropriate mood and affect SKIN: warm, dry, normal color; no rashes Course Course Course Narrative: Patient still complaining of leg pain. After discussing morphine allergy with caregiver it appears she experienced the side effect of shallow breathing. This does not sound like an allergy. Will give low-dose fentanyl and monitor for reaction. Quality Measures none Orders Category Date Time Status CT Screening NOW Care 03/10/25 12:31 Completed Turret Press Operator NOW Care 03/10/25 13:10 Completed EKG (ED ONLY) *Do not use* NOW Care 03/10/25 13:[address] abdomen pelvis w con Stat Exams 03/10/25 12:28 Completed EKG (ED Only) Stat Exams 03/10/25 13:10 Draft US venous doppler LE LT Stat Exams 03/10/25 12:28 Completed XR chest 1V portable Stat Exams 03/10/25 13:10 Completed B-Type Natriuretic Peptide Stat Lab 03/10/25 13:23 Completed CBC Stat Lab 03/10/25 13:23 Completed Comprehensive Metabolic Panel Stat Lab 03/10/25 13:23 Completed Lipase Stat Lab 03/10/25 13:23 Completed Magnesium Stat Lab 03/10/25 13:23 Completed Partial Thromboplastin Time Stat Lab 03/10/25 13:23 Completed Prothrombin Time with INR Stat Lab 03/10/25 13:23 Completed Troponin I Stat Lab 03/10/25 13:23 Completed UA, C/S IF [Urinalysis, C/S if Indicated] Stat Lab 03/10/25 13:36 Completed Acetaminophen Tab [Tylenol Tab] Med 03/10/25 12:36 Discontinued 650 mg PO X1 ONE fentaNYL INJ [Sublimaze Inj] Med 03/10/25 15:22 Discontinued 50 mcg IVP X1 ONE Vital Signs Vital signs: Vital Signs Temperature 98.3 F 03/10/25 12:49 Pulse Rate 76 03/10/25 12:49 Respiratory Rate 18 03/10/25 12:49 Blood Pressure 163/88 H 03/10/25 12:49 Pulse Oximetry (%) 98 03/10/25 12:49 Oxygen Delivery Method Room Air 03/10/25 12:49 Extremity Problem Patient data External records reviewed:: [facility] [place] previous records 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 Social determinants that could affect healthcare access:: none Patient has the following chronic illnesses:: Diabetes, CHF How is presenting disease/condition affected by chronic disease/condition?: uneffected by Evaluation data The following diagnostics were reviewed and interpreted by me:: lab results, radiology exam(s) and EKG tracing(s) Lab and/or radiology exams considered but not ordered:: None Interpretation Summary: EKG interpreted by me: Paced rhythm rate of 75, ventricular paced, does not meet Sgarbossa criteria Chest Xray 1 view AP portable interpreted by me: good inspiratory effort, normal cardiac shadow, diaphragms well-defined, no effusions, lung koenig clear, normal pulmonary artery contour, no acute process Lab results interpreted by me: CBC, CMP, UA unremarkable and within normal limits Medications / Prescriptions Medications or Prescriptions considered but not ordered:: Considered [place] for pain Medication administrations:: Medication Administration History Discontinued Medications Acetaminophen (Acetaminophen 325 Mg Tablet) 650 mg PO X1 ONE Stop: 03/10/25 12:37 Last Admin: 03/10/25 13:05 Dose: 650 mg Documented By: HAI Fentanyl Citrate (Fentanyl Cit Inj 50 Mcg/Ml Amp 2ml) 50 mcg IVP X1 ONE Stop: 03/10/25 15:23 Last Admin: 03/10/25 15:56 Dose: 50 mcg Documented By: EF as above Consultations Consultation(s) initiated? (list below): No Diagnosis Extremity Problem Differential Diagnosis: herpes zoster, gout, cellulitis, superficial thrombophlebitis, lower extremity edema and deep vein thrombosis of lower extremity Most likely diagnosis given after review of the tests above:: Popliteal cyst Admission Indicated Admission indicated?: not indicated Admission Request Was there a request for admission?: No Disposition Plan Disposition Plan: Discharge Discharge Attestation Discharge Attestation: The patient and all family members were given an opportunity to ask questions and understood the discharge instructions. Discharge instructions specifically effects, indications for sooner follow up or return to the emergency department, and the expected course of current diagnosis. Patient condition: Stable Discharge Plan Plan Patient Disposition: HOME (Self Care) Prescriptions/Referrals Prescriptions/Med Rec: No Action lisinopril 20 MG tablet 20 mg PO QDAY Qty: 0 thyroid (pork) [[place] Thyroid] 90 MG tablet 90 mg PO QDAY Qty: 0 Referrals: Samantha Zarate MD [Primary Care Provider, Family Practice] - In 1 week Problem List Clinical Impression: Popliteal cyst, Mass of subcutaneous tissue Patient/Caregiver Discharge Instructions Education Materials: Cyst Popliteal Additional Instructions: Follow up with your doctor for reexamination and possible referral for ultrasound of soft tissue mass Print Language: Japanese Stand Alone Forms: Andreea Award Info., Patient Portal Info Letter
[2025-03-10] MEDS: fentaNYL CIT INJ 50 mCg/ML AMP 2ML IVP (15:56)
[2025-03-10 16:00] VITALS: BP 164/80; PULSE 88; RESP 18; TEMP 36.9; O2SAT 97
== END 2025-03-10 16:47 | disposition home or self-care (01) ==
PROVIDERS: Emergency Provider Emergency Medicine; PCP Family Medicine
DX: M71.22 Synovial cyst of popliteal space [Baker], left knee (principal); L98.9 Disorder of the skin and subcutaneous tissue, unspecified; R94.31 Abnormal electrocardiogram [ECG] [EKG]; R07.9 Chest pain, unspecified; Z95.0 Presence of cardiac pacemaker
CPT/HCPCS: 36415; 71045; 74177; 80053; 81001; 83690; 83735; 83880; 84484; 85025; 85610; 85730; 93005; 93971; 96374; 99284; A4649; J3010; Q9967; A9270